=== PATIENT | female | born 2005 | race Caucasian/White ===

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

== ENCOUNTER → 2024-01-01 15:42 | Outpatient (BNVA) | payer OTHER, MEDICAID, SELFPAY | PROVIDERS: PCP Family Medicine; Visit Provider Clinical Nurse Specialist Adult Health | DX: J02.9 Acute pharyngitis, unspecified (principal) | CPT/HCPCS: 87071; 87880 ==

== ENCOUNTER 2024-02-28 17:28 | Emergency (ER) | payer OTHER, MEDICAID, SELFPAY ==
[2024-02-28 17:34] VITALS: BP 143/87; PULSE 93; RESP 18; TEMP 37.2; O2SAT 98
--- NOTE | 2024-02-28 20:23 | W.ED.FEMALGU ---
HPI - Female Genitourinary General: Chief complaint: Urogenital-Female Stated complaint: vaginal pain Time Seen by Provider: 02/28/24 20:06 History of Present Illness: Patient presents to the ER with complaints of low pelvic pain and urinating a lot and feeling like something is falling out of my vagina and needing to push. Patient has normal menses with her last 1 being approximately 2 weeks ago. Patient says she has had this feeling before after she delivered her last child and was delivering blood clots. Patient has not noticed any unusual discharge or odor. Patient has had low pelvic pain with the right being a little bit worse than the left. Patient does have a history of cysts in the past. Patient says this is different than those. Date of Last Menstrual Period: 02/14/24 Review of Systems General: Reports: 10 or more systems reviewed and unremarkable except in HPI and below PFSH ED PFSH: Medical History hemorrhage History of anal fissures Allergic rhinitis Thalassemia Mesenteric adenitis Chronic constipation Ovarian cyst Surgical History Hx laparoscopic cholecystectomy 04/26/23 History of tonsillectomy Family History Mother Thalassemia Patient is of [place] descent Other Cancer Diabetes Denies family history of Hypertension Social History Smoking and tobacco/nicotine status: former use of tobacco/nicotine Second hand smoke exposure: Yes Alcohol intake: never Substance/Drug Use: never Adopted: No Household members: family and friend(s) Marital status: Single Highest education level completed: High School Graduate Pets and animals: No Do you think of yourself as: Straight/Heterosexual Current gender identity: Female Special denita needs: No Agree to transfusion: Yes Female Reproductive History: Date of last menstrual period: 02/14/24 Physical Exam Const: COMMON NORMALS: no acute distress, average body habitus, patient oriented x3, no limitations, healthy appearing, alert and well nourished Neck/C-Spine: COMMON NORMALS: no JVD Chest: COMMONS NORMALS: normal inspection of the chest and normal palpation of entire chest wall Resp: COMMON NORMALS: normal respiratory effort, No retractions, No use of accessory muscles and clear to auscultation bilaterally AUSCULTATION: clear to auscultation bilaterally Cardio: COMMON NORMALS: no JVD, regular rate, regular rhythm, S1 normal heart sound present, S2 normal heart sound present, No gallops present (Cardio), No clicks present (Cardio), No murmurs present (Cardio) and No rub (Cardio) RATE: regular rate RHYTHM: regular rhythm HEART SOUNDS: S1 normal heart sound present and S2 normal heart sound present GI: COMMON NORMALS: Normal to inspection, nondistended, normoactive bowel sounds present, Soft to palpation and No hepatosplenomegaly present; negative for non-tender (Tender to palpate low pelvic region right quadrant mildly worse than left) PALPATION: Yes Soft to palpation and Yes No hepatosplenomegaly present : COMMON NORMALS: Yes no CVA tenderness, Yes normal external appearance, Yes normal appearance of the vagina, Yes normal bimanual exam, No No adnexal tenderness (Mild adnexal tenderness) and Yes no masses BLADDER/KIDNEY EXAM: Yes no CVA tenderness BIMANUAL EXAM - VAGINA & UTERUS: Yes normal bimanual exam BIMANUAL EXAM - ADNEXA, OTHER: No rectocele and No cystocele Back/Pelvis: COMMON NORMALS: no CVA tenderness Neuro: COMMON NORMALS: patient oriented x3 SENSORIUM/ORIENTATION: Yes alert Course Vital Signs: Vital signs: Vital Signs Temperature 98.9 F 02/28/24 17:34 Pulse Rate 82 02/28/24 23:19 Respiratory Rate 16 02/28/24 20:24 Blood Pressure 111/54 02/28/24 21:40 Pulse Oximetry 98 02/28/24 23:19 Oxygen Delivery Me thod Room Air 02/28/24 20:24 MDM - Female Medical Decision Making Physical exam was performed, lab work was obtained as well as transvaginal ultrasound, only abnormal thing showed left ovarian cyst 2.5 cm. These results was discussed with the patient will be referred back to her RESTRICTIVE PREPARATION OPERATOR for further evaluation testing. We will send in some ibuprofen 800 mg to the pharmacy for her pain. Differential Diagnosis Unlikely abdominal pain, acute appendicitis, calculus of kidney, constipation, diverticulitis, endometriosis, gastroenteritis, pancreatitis or small bowel obstruction Medical Records I reviewed the patient's medical records. Lab Data I reviewed the patient's lab results. Radiology Impressions Transvaginal US 02/28/24 20:55 IMPRESSION: 1. Cervical nabothian cysts. 2. Endometrial stripe prominent at 12 mm likely related to menstrual status. 3. Small amount of nonspecific fluid in the pelvis. 4. Left ovary 2.5 cm cyst, likely follicular with color blood flow in the left ovary. Laboratory Results HCG, Qual Negative (Negative) 02/28/24 17:31 Urine Color Light yellow (Yellow) 02/28/24 17:31 Urine Appearance Clear (CLEAR) 02/28/24 17:31 Urine pH 7 (5-7) 02/28/24 17:31 Ur Specific Pearcy 1.005 (1.005-1.030) 02/28/24 17:31 Urine Protein Neg (Negative) 02/28/24 17:31 Urine Glucose (UA) Norm (Normal) 02/28/24 17:31 Urine Ketones Negative (Negative) 02/28/24 17:31 Urine Blood Neg (Negative) 02/28/24 17:31 Urine Nitrate Negative (Negative) 02/28/24 17:31 Urine Bilirubin Neg (Negative) 02/28/24 17:31 Urine Urobilinogen Neg mg/dL (Negative) 02/28/24 17:31 Ur Leukocyte Esterase Negative (Negative) 02/28/24 17:31 Urine RBC 0-4 /hpf (0-2) H 02/28/24 17:31 Urine WBC 0-4 /hpf (0-5) H 02/28/24 17:31 Ur Squamous Epith Cells 5-10 /hpf (0-5) H 02/28/24 17:31 Amorphous Sediment Trace /hpf 02/28/24 17:31 Urine Bacteria Trace /hpf (NONE) 02/28/24 17:31 Urine Mucus Trace /hpf 02/28/24 17:31 All radiology interpretation(s) finalized by discharge Discharge Plan Discharge Patient Disposition: Home Clinical Impression: Pelvic pain, Cyst of left ovary Condition: Stable Prescriptions: New ibuprofen 800 mg tablet 800 mg PO Q8H PRN (Reason: pain) Qty: 30 0RF No Action mirtazapine 7.5 mg tablet 7.5 mg PO DAILY Qty: 30 3RF hydroxyzine HCl 10 mg tablet 10 mg PO QID PRN (Reason: anxiety) Qty: 30 1RF ondansetron 4 mg tablet,disintegrating 4 mg PO Q8H PRN (Reason: nausea and vomiting) Qty: 30 0RF diclofenac potassium 50 mg tablet 50 mg PO BID PRN (Reason: pain) Qty: 30 2RF fluticasone propionate [Flonase Allergy Relief] 50 mcg/actuation spray,suspension 1 spray intranasal BID PRN (Reason: nasal congestion) Qty: 16 0RF Rx Instructions: administer into each nostril Discharge Orders: Discharge ED (Routine); Ordered 02/28/24 Ordered By: Mark Mackey Referrals: Dg Perla MD [Primary Care Provider] - 1 week Patient Instructions: Ovarian Cyst (ED), Pelvic Pain in Women (ED) Activity Restrictions/Additional Instructions: Please follow-up with your RESTRICTIVE PREPARATION OPERATOR for further evaluation testing. We have sent some ibuprofen 800 mg to your pharmacy please take them as directed as needed for pain. Stand Alone Forms: Work/School Release Coding Level of Care Code ED Chief Dog License Inspector for Anmol Estevez
[2024-02-28 20:24] VITALS: BP 126/75; PULSE 97; RESP 16; O2SAT 100
[2024-02-28 20:33] LABS: HCG Qualitative Urine. Negative (Negative)
[2024-02-28 20:36] LABS: Amorphous Sediment Urine TRACE /hpf; Bacteria Urine TRACE /hpf; Bilirubin Urine Neg (Negative); Blood Urine Neg (Negative); Glucose Urine UA Norm (Normal); Ketones Urine Negative (Negative); Leukocyte Esterase Urine Negative (Negative); Mucus Urine TRACE /hpf; Nitrate Urine Negative (Negative); Protein Urine Neg (Negative); RBC Urine 0-4 /hpf (0-2); Specific Gravity, Urine 1.005 (1.005-1.030); Urine Appearance Clear (CLEAR); Urine Color Light yellow (Yellow); Urobilinogen Urine Neg (Negative); WBC Urine 0-4 /hpf (0-5); pH Urine 7 (5-7)
--- NOTE | 2024-02-28 20:55 | USR_ITS ---
PROCEDURE INFORMATION: Exam: US Pelvis, Transvaginal Exam date and time: 02/28/2024 10:10 PM Age: 18 years old Clinical indication: Pelvic pain; Additional info: Low pelvic pain, , also feels like something is falling out of my vagina TECHNIQUE: Imaging protocol: Real-time transvaginal pelvic ultrasound with image documentation. Transvaginal imaging was used for better evaluation of the endometrium, adnexa, and/or cervix. COMPARISON: US transvaginal [id number] 11/06/2023 1:35 PM FINDINGS: Uterus: Endometrial stripe prominent at 12 mm likely related to menstrual status. Cervix: Cervical nabothian cysts. Right ovary/adnexa: Normal. No mass. Normal ovarian blood flow. Left ovary/adnexa: Left ovary 2.5 cm cyst, likely follicular with color blood flow in the left ovary. Intraperitoneal space: Small amount of nonspecific fluid in the pelvis. US/US transvaginal [id number] IMPRESSION: 1. Cervical nabothian cysts. 2. Endometrial stripe prominent at 12 mm likely related to menstrual status. 3. Small amount of nonspecific fluid in the pelvis. 4. Left ovary 2.5 cm cyst, likely follicular with color blood flow in the left ovary.
[2024-02-28 21:40] VITALS: BP 111/54; PULSE 86; O2SAT 99
[2024-02-28 23:19] VITALS: PULSE 82; O2SAT 98
== END 2024-02-28 23:20 | disposition home or self-care (01) ==
PROVIDERS: Emergency Medicine; Emergency Provider Emergency Medicine; PCP Family Medicine
DX: R10.2 Pelvic and perineal pain (principal); N83.202 Unspecified ovarian cyst, left side; Z87.891 Personal history of nicotine dependence
CPT/HCPCS: 76830; 81001; 81025; 99284

== ENCOUNTER 2024-03-01 11:48 | Emergency (ER) | payer OTHER, MEDICAID, SELFPAY ==
[2024-03-01 12:07] VITALS: BP 118/71; PULSE 89; RESP 16; TEMP 36.8; O2SAT 100; BMI 35.4
[2024-03-01 13:28] LABS: HCG, Serum Qual Negative (Negative)
[2024-03-01 13:44] VITALS: BP 126/85; PULSE 88; RESP 16; O2SAT 100
--- NOTE | 2024-03-01 14:11 | W.ED.FEMALGU ---
HPI - Female Genitourinary General: Chief complaint: Vaginal Bleeding Stated complaint: issues with vagina Time Seen by Provider: 03/01/24 12:28 Source: patient Mode of arrival: ambulatory History of Present Illness: 18-year-old female presents emergency room she is having mild vaginal bleeding that she states she feels like something is falling on her vaginal vagina. She was seen 2 days ago pelvic exam was recorded is unremarkable. She was no at that time ultrasound did not show any significant abnormalities that she is still having trouble now especially when she tries to go to the bathroom. No purulent vaginal discharge is difficult time initiating urination but no dysuria urgency or frequency. Onset (ago): day(s) Location of symptoms: external genitalia and vaginal Severity: moderate Quality of pain: aching Consistency: intermittent Vaginal discharge: none Vaginal bleeding: moderate Urinary symptoms: Difficulty Urinating Exacerbating factors: urination Relieving factors: none Associated symptoms: Deny abdominal pain, short of breath, fevers/chills, headache(s), nausea, rash, seizures, syncope, vaginal bleeding, vaginal discharge or weakness Possible : other (Negative test in the ER 2 days ago) Date of Last Menstrual Period: 02/17/24 Review of Systems Const: Denies: fever(s) or chills Card: Denies: syncope Resp: Denies: dyspnea GI: Denies: abdominal pain or nausea : Reports: urinary hesitancy; Denies: vaginal discharge Musc: Denies: neck pain or back pain Skin/Breast: Denies: rash Neuro: Denies: headache(s) [facility] ED PFSH: Medical History hemorrhage History of anal fissures Allergic rhinitis Thalassemia Mesenteric adenitis Chronic constipation Ovarian cyst Surgical History Hx laparoscopic cholecystectomy 04/26/23 History of tonsillectomy Family History Mother Thalassemia Patient is of [place] descent Other Cancer Diabetes Denies family history of Hypertension Social History Smoking and tobacco/nicotine status: former use of tobacco/nicotine Second hand smoke exposure: Yes Alcohol intake: never Substance/Drug Use: never Adopted: No Household members: family and friend(s) Marital status: Single Highest education level completed: High School Graduate Pets and animals: No Do you think of yourself as: Straight/Heterosexual Current gender identity: Female Special denita needs: No Agree to transfusion: Yes Female Reproductive History: Date of last menstrual period: 02/17/24 Physical Exam Const: COMMON NORMALS: no acute distress GENERAL APPEARANCE: cooperative and comfortable ORIENTATION/CONSCIOUSNESS: Yes awake, Yes oriented to person, Yes oriented to place and Yes oriented to time HENMT: COMMON NORMALS: normocephalic, atraumatic and hearing grossly normal bilaterally HEAD & SCALP: normocephalic and atraumatic Resp: COMMON NORMALS: normal respiratory effort, No retractions, No use of accessory muscles and clear to auscultation bilaterally AUSCULTATION: clear to auscultation bilaterally Cardio: COMMON NORMALS: regular rate, regular rhythm and No murmurs present (Cardio) RATE: regular rate RHYTHM: regular rhythm GI: COMMON NORMALS: Soft to palpation and No hepatosplenomegaly present AUSCULTATION: Yes normoactive bowel sounds PALPATION: Yes Soft to palpation, No Tenderness to palpation present (GI), No Guarding due to palpation present (GI) and Yes No hepatosplenomegaly present : SPECULUM EXAM - VAGINA: No vaginal bleeding OB/EXTERNAL & SPECULUM: No vaginal bleeding OTHER: On pelvic exam anterior lip of the uterus is visible at the introitus. There is a mild cystocele with Valsalva maneuver as well. There is a scant amount of blood at the cervix no purulent drainage no cervical motion tenderness Extremity: COMMON NORMALS: normal to inspection, capillary refill normal, no clubbing, cyanosis or edema, no calf tenderness and no pedal edema Neuro: SENSORIUM/ORIENTATION: Yes oriented to person, Yes oriented to place and Yes oriented to time Skin: COMMON NORMALS: no rashes or lesions noted GENERAL SKIN EXAM: no rashes or lesions noted Course Vital Signs: Vital signs: Vital Signs Temperature 98.3 F 03/01/24 12:07 Pulse Rate 88 03/01/24 13:44 Respiratory Rate 16 03/01/24 13:44 Blood Pressure 126/85 03/01/24 13:44 Pulse Oximetry 100 03/01/24 13:44 Oxygen Delivery Me thod Room Air 03/01/24 12:07 MDM - Female Medical Decision Making Partial uterine prolapse with cystocele. Will discharge patient home have her follow-up with her primary care doctor for referral to [facility] negative GC chlamydia are pending Medical Records I reviewed the patient's medical records. Lab Data I reviewed the patient's lab results. Laboratory Results HCG, Qual Negative (Negative) 03/01/24 13:10 No radiology studies performed this visit Discharge Plan Discharge Patient Disposition: Home Clinical Impression: Cystocele with uterine prolapse Condition: Stable Prescriptions: No Action mirtazapine 7.5 mg tablet 7.5 mg PO DAILY Qty: 30 3RF hydroxyzine HCl 10 mg tablet 10 mg PO QID PRN (Reason: anxiety) Qty: 30 1RF ondansetron 4 mg tablet,disintegrating 4 mg PO Q8H PRN (Reason: nausea and vomiting) Qty: 30 0RF diclofenac potassium 50 mg tablet 50 mg PO BID PRN (Reason: pain) Qty: 30 2RF fluticasone propionate [Flonase Allergy Relief] 50 mcg/actuation spray,suspension 1 spray intranasal BID PRN (Reason: nasal congestion) Qty: 16 0RF Rx Instructions: administer into each nostril ibuprofen 800 mg tablet 800 mg PO Q8H PRN (Reason: pain) Qty: 30 0RF Discharge Orders: Discharge ED (Routine); Ordered 03/01/24 Ordered By: Jose De La O Referrals: Dg Perla MD [Primary Care Provider] - Discharge Diet: Usual diet Discharge Activity: Increase activity as tolerated Patient Instructions: Opioid Safety, Pain Management Stand Alone Forms: Work/School Release Coding Level of Care Code ED Spray Machine Operator for Anmol Estevez
[2024-03-02 22:53] LABS: Chlamydia Trachomatis RNA TMA NOT DETECTED (NOT DETECTED); Neisseria Gonorrhoeae RNA, TMA NOT DETECTED (NOT DETECTED)
== END 2024-03-01 13:43 | disposition home or self-care (01) ==
PROVIDERS: Emergency Provider Family Medicine; PCP Family Medicine
DX: N81.4 Uterovaginal prolapse, unspecified (principal); Z87.891 Personal history of nicotine dependence
CPT/HCPCS: 36415; 84703; 87210; 87491; 87591; 99283

== ENCOUNTER 2024-03-24 16:46 | Observation (INO) | payer OTHER, MEDICAID, SELFPAY ==
[2024-03-23 13:23] LABS: Basophils # 0.1 10^3/uL (0.0-0.1); Basophils % 1.1 %; Eosinophils # 0.1 10^3/uL (0.0-0.8); Eosinophils % 1.6 %; Hematocrit 37.8 % (36-47); Lymphocytes % 35.3 %; Mean Corpuscular HGB Conc 29.9 g/dL (30-55); Mean Corpuscular Hemoglobin 19.2 pg (27-33); Mean Corpuscular Volume 64.2 fl (85-98); Mean Platelet Volume 10.7 fL (7.4-10.4); Monocytes # 0.4 10^3/uL (0.2-0.9); Monocytes % 7.1 %; Neutrophils # 3.03 10^3/uL (1.8-8.0); Neutrophils % 54.7 %; Nucleated Red Blood Cells % 0 %; Platelet Count 307 10^3/cmm (157-399); Red Blood Count 5.89 10^6/uL (3.85-5.65); Red Cell Distribution Width 15.1 % (12.1-15.1); White Blood Count 5.53 10^3/uL (4.5-13.0)
--- NOTE | 2024-03-23 13:32 | P.ANESASSM_ITS ---
Pre-Anesthetic Assessment Height/Weight: Height 1.75 m Operation Date: 03/24/24 14:50 Proposed Procedures p Total Vaginal Hysterectomy 53547, 99782, N81.4(Not Applicable) - Honorio Ramirez MD s Sling(Not Applicable) - Honorio Ramirez MD Familial anesthetic complications: none Social Tobacco (vape) and No alcohol Exam alert, oriented x 3, clear to auscultation bilaterally and regular rate & rhythm Airway Mallampati: Class II Dentition: full CV/HEM Anemia beta thalasemia Anesthetic Plan ASA status: 2 Anesthesia: General Risk of > 500 ml blood loss (7ml/kg in children): No Medications/Allergies Home Medications Medication Instructions Recorded Confirmed Last Taken Type ondansetron 4 mg disintegrating 4 mg PO Q8H PRN nausea and 11/13/23 03/23/24 03/21/24 Rx tablet vomiting #30 tabs fluticasone propionate 50 1 spray intranasal BID PRN nasal 01/22/24 03/23/24 03/20/24 Rx mcg/actuation nasal congestion #16 grams spray,suspension (Flonase Allergy Relief) tramadol 50 mg tablet 25 mg (1/2 x 50 mg) PO BID PRN 03/13/24 03/23/24 Unknown Rx pain #5 tabs hydroxyzine HCl 25 mg tablet 25 mg PO QID PRN anxiety #30 tabs 03/20/24 03/23/24 03/20/24 Rx acetaminophen 500 mg tablet 1,000 mg PO QID PRN Pain 03/23/24 03/23/24 03/20/24 History ibuprofen 800 mg tablet 800 mg PO TID PRN Pain 03/23/24 03/23/24 03/19/24 History Allergies Allergy/AdvReac Type Severity Reaction Status Date / Time ampicillin Allergy ALGY-Difficulty Verified 03/23/24 08:23 Swallowing PFSH Anesthesia Medical History hemorrhage History of anal fissures Allergic rhinitis Thalassemia Mesenteric adenitis Chronic constipation Ovarian cyst Surgical History Hx laparoscopic cholecystectomy 04/26/23 History of tonsillectomy Family History Mother Thalassemia Patient is of [place] descent Other Cancer Diabetes Denies family history of Hypertension Social History Smoking and tobacco/nicotine status: former use of tobacco/nicotine Second hand smoke exposure: Yes Alcohol intake: never Substance/Drug Use: never Adopted: No Household members: family and friend(s) Marital status: Single Highest education level completed: High School Graduate Pets and animals: No Do you think of yourself as: Straight/Heterosexual Current gender identity: Female Special denita needs: No Agree to transfusion: Yes Female Reproductive History Date of last menstrual period: 03/12/24 Data Anesthesia 03/23/24 13:05 03/23/24 13:05 Short CBC 03/23/24 Range/Units 13:05 WBC 5.53 (4.5-13.0) 10^3/uL Hgb 11.30 L (12.4-14.8) g/dL Hct 37.8 (36-47) % MCV 64.2 L (85-98) fl Plt Count 307 (157-399) 10^3/cmm Neut % (Auto) 54.7 % Neut # (Auto) 3.03 (1.8-8.0) 10^3/uL Cardiac Studies: 2 No Data to Display
[2024-03-23 13:33] LABS: Add Urine Microscopic? YES; Bilirubin Urine Neg (Negative); Blood Urine Neg (Negative); Glucose Urine UA Norm (Normal); Ketones Urine Negative (Negative); Leukocyte Esterase Urine Negative (Negative); Nitrate Urine Negative (Negative); Protein Urine Neg (Negative); Specific Gravity, Urine 1.015 (1.005-1.030); Urine Appearance SL Hazy (CLEAR); Urine Color Yellow (Yellow); Urobilinogen Urine Norm (Negative); pH Urine 7 (5-7)
[2024-03-23 13:34] LABS: Add Urine Culture? No; Amorphous Sediment Urine 1+ /hpf; Bacteria Urine TRACE /hpf; Mucus Urine 1+ /hpf; RBC Urine 0-4 /hpf (0-2); Squamous Epithelial Cell Urine 0-4 /hpf (0-5); WBC Urine 0-4 /hpf (0-5)
[2024-03-23 13:38] LABS: Alanine Aminotransferase 9 U/L (0-33); Albumin Level 4.5 g/dL (3.5-5.2); Alkaline Phosphatase 48 U/L (35-105); Aspartate Amino Transferase 17 U/L (0-32); Blood Urea Nitrogen 12 mg/dL (6-20); Calcium 9.4 mg/dL (8.5-10.5); Carbon Dioxide 26 mmol/L (22-29); Chloride 102 mmol/L (98-107); Globulin 2.6 g/dL (1.3-4.6); Glomerular Filtration Rate 106.7 mL/min (90-130); Glucose 88 mg/dL (65-115); Osmolality Calculated 287 mOsm/kg (285-295); Sodium 139 mmol/L (136-145); Total Bilirubin 0.3 mg/dL (0.15-1.2); Total Protein 7.1 g/dL (6.6-8.7)
[2024-03-24] VITALS (18 sets, daily range): BP systolic 98–124; BP diastolic 54–73; PULSE 67–86; RESP 14–18; TEMP 36.8–37.1; O2SAT 97–100
--- NOTE | 2024-03-24 14:06 | W.PM.OPSUD ---
Surgery/Procedure H&P Update DATE OF PROCEDURE: March 24, 2024 DATE H&P PERFORMED: 03/06/24 H&P UPDATE INFORMATION: I have reviewed H&P completed within last 30 days, I have examined patient prior to procedure and No changes to prior documentation PREOP DIAGNOSIS: Uterine prolapse, pelvic pain, urinary stress incontinence PLANNED PROCEDURE: Operation Date: 03/24/24 14:50 Proposed Procedures p Total Vaginal Hysterectomy 98084, 99598, N81.4(Not Applicable) - Honorio Raimrez MD s Sling(Not Applicable) - Honorio Ramirez MD
[2024-03-24] MEDS: sodium chloride 0.9% 500 ML IV (14:19)
[2024-03-24] MEDS: midazolam 1 mg/mL INJ 2 mL 2 MG IVP (14:19)
[2024-03-24] MEDS: scopolamine 1.5 Patch 1 PATCH TRANSDERMA (14:21)
[2024-03-24] MEDS: vancomycin 1,000 MG in sodium chloride 0.9% 250 ML 250 MG IV (14:23)
[2024-03-24] MEDS: sodium chloride 0.9% 1,000 ML 30 ML IV (14:27)
[2024-03-24 14:33] LABS: OR HCG Qualitative Urine Negative (Negative)
[2024-03-24] MEDS: levofloxacin-dextrose 5 % 500 MG/100 ML PREMIX 100 MG IV (15:10)
[2024-03-24] MEDS: lidocaine-epi 2% PF 1:200,000 20 mL SDV XX (15:43)
--- NOTE | 2024-03-24 16:29 | P.BOP_ITS ---
Date of Procedure: 03/24/24 Surgeon: Honorio Ramirez MD Substation Manager(s): None Procedure(s) performed: Total vaginal hysterectomy, mid urethral sling Findings of the procedure(s): Uterine prolapse stage II Estimated blood loss: 350 Specimen(s) removed: Uterus Post-operative diagnosis: Status post total vaginal hysterectomy and mid urethral sling
--- NOTE | 2024-03-24 16:31 | P.OP_ITS ---
Operative Report Date of procedure: March 24, 2024 Pre-op diagnosis: Uterine prolapse Chronic Pelvic pain Stress urinary incontinence Post-op diagnosis: same Post-op findings: Urine prolapse stage II Procedure done: Total vaginal hysterectomy Mid urethral sling Cystoscopy Specimens removed/disposition: The uterus Surgeon: Honorio Ramirez MD Estimated blood loss (mL): 350 IV fluids (mL): 1,000 Urine output (mL): 200 Complications: None Procedure: After informed consent and risks, benefits, indications and alternatives reviewed with the patient was taken to the operating room. The patient was placed in dorsal lithotomy position prepped, and draped in the usual sterile fashion. The pre-procedure timeout verifying the correct patient, procedure, site and side, could not requirements was performed and acknowledge by the OR team. A Charles catheter was placed. A Bookwalter vaginal retractor was placed into the vagina in usual manner visualize the cervix. Cervix was grasped with a single tooth tenaculum and circumferentially infiltrated with 2% lidocaine with epinephrine. Then cervix was circumferentially incised with bovie and the bladder was dissected off the pubovesical cervical fascia anteriorly with a sponge stick and Metzenbaum scissors. The anterior peritoneal reflection was identified and the anterior cul-de-sac was entered sharply with Metzenbaum scissors. The same procedure was performed posteriorly and a posterior colpotomy was made through the posterior cul-de-sac space without difficulty and the posterior blade of the Bookwalter vaginal retractor was advanced posteriorly into the cul-de-sac. At this time, the left and right uterosacral ligaments were isolated and ligated with 0 Vicryl. The LigaSure device was placed over the uterosacral ligaments on either side and was then used in a serial fashion up through the cardinal ligaments bilaterally cross-clamped, cut, and sealed with the LigaSure device. Finally, the uterine arteries were cross-clamped, cut, sealed and ligated with the LigaSure device. Hemostasis was assured. The broad ligaments were then serially clamped, sealed and cut with the LigaSure device on both sides. Excellent hemostasis was visualized. Both cornua were clamped, sealed and cut with the LigaSure device. Then the pedicles were then suture ligated with excellent hemostasis. The uterus was excised and submitted for pathologic evaluation. No other abnormalities were noted in the pelvic cavity. The peritoneum was then closed in a pursestring fashion with 0 Vicryl suture. The vaginal cuff angles were closed with [id number] #0 Vicryl suture on both sides and transfixed with the ipsilateral cardinal and uterosacral ligaments. The remainder of the vaginal cuff was closed with #0 Vicryl in a running locked fashion. The anterior vaginal mucosa beneath the midurethra was infiltrated with 2% lidocaine with epinephrine. A vertical midline incision was made beneath the midurethra, nearly 1.5 cm length. Careful submucosal dissection was performed bilaterally up to the interior portion of the inferior pubic ramus. The insertion of adductor longus tendon on the patient?s pubic ramus was identified as reference land dominik. Palpated the notch along the internal edge of ischiopubic ramus where the adductor longus tendon and the inferior pubic ramus meet. The Altis single incision sling (SIS) was selected. Then the needle of the SIS inserted aiming at the location of this notch. One of the integrated self- fixating tips place onto the needle by sliding it over the end of the needle. The needle/sling assembly was inserted toward the location of identified reference notch making sure that the flat of the handle is perpendicular to the desired path. The needle was tracked along the posterior surface of the ischiopubic ramus until the midline dominik on the mesh is approximately at the midline position under the urethra. The needle was removed and the same was repeated on the contralateral side until the appropriate sling tension under the urethra was achieved ensuring that the mesh lays flat. The needle was removed and vaginal incision was closed in a running interlocking fashion with 2-0 Vicryl. At this time, instruments were removed from the vagina at hemostasis assured. Bludigo was given IV. Then the Charles catheter was removed and cystoscope was inserted. The bladder was filled with sterile water. Complete evaluation of the bladder mucosa was performed noting no lacerations, dimpling, tears, bleeding of the mucosa or muscular layers. Both ureteral orifices were identified. Prompt excretion of urine from both ureteral orifices was noted blue-color. Cystoscope was withdrawn. Charles catheter was then placed yielding clear blue urine. The patient was taken out of dorsal lithotomy position and awakened from the general anesthesia. The patient tolerated the procedure well and was taken to the PACU recovery room in a stable condition. Sponge, lap, needle and instruments counts were correct x3.
[2024-03-24] MEDS: meperidine 50 mg/mL INJ 12.5 MG IVP (16:40)
[2024-03-24] MEDS: ondansetron 2 mg/ML SDV 2 mL 4 MG IVP (16:42)
[2024-03-24] MEDS: fentaNYL 50 mcg/mL INJ 2mL IVP (16:53)
--- NOTE | 2024-03-24 17:10 | ANE.PACU2 ---
Inpatient post-anesthesia follow up: Airway intact: Yes Vital signs: Temperature 98.1 F Pulse Rate 79 Respiratory Rate 16 Blood Pressure 112/79 Pulse Oximetry 95 Oxygen Delivery Me thod Room Air Oxygen Flow Rate 6 Fraction of Inspir ed Oxygen Hydration adequate: Yes Nausea and vomiting: No Pain level: 1 Mental status: Baseline
[2024-03-24] MEDS: docusate sodium 100 mg Capsule PO (17:45)
[2024-03-24] MEDS: ketorolac 30 mg/mL INJ IVP ×2 (17:45→23:38)
[2024-03-24] MEDS: HYDROcodone-acetaminophen 5-325 mg Tablet PO (17:46)
[2024-03-24] MEDS: simethicone 80 mg Chew PO (17:46)
[2024-03-24] MEDS: dextrose 5%-lactated ringers 1,000 ML 125 ML IV (17:49)
[2024-03-25 00:34] VITALS: BP 92/55; PULSE 89; RESP 16; O2SAT 97
[2024-03-25] MEDS: HYDROcodone-acetaminophen 5-325 mg Tablet PO ×2 (01:31→12:28)
[2024-03-25] MEDS: simethicone 80 mg Chew PO ×2 (03:13→09:12)
[2024-03-25] MEDS: ondansetron 2 mg/ML SDV 2 mL 4 MG IVP (03:14)
[2024-03-25 04:00] VITALS: BP 112/79; PULSE 79; RESP 16; TEMP 36.7; O2SAT 97
[2024-03-25 04:13] VITALS: RESP 16; O2SAT 95
[2024-03-25 05:41] LABS: Hematocrit 34.1 % (36-47); Mean Corpuscular HGB Conc 30.2 g/dL (30-55); Mean Corpuscular Hemoglobin 19.3 pg (27-33); Mean Corpuscular Volume 63.7 fl (85-98); Mean Platelet Volume 10.2 fL (7.4-10.4); Platelet Count 318 10^3/cmm (157-399); Red Blood Count 5.35 10^6/uL (3.85-5.65); Red Cell Distribution Width 15.1 % (12.1-15.1); White Blood Count 7.45 10^3/uL (4.5-13.0)
[2024-03-25] MEDS: ketorolac 30 mg/mL INJ IVP (05:44)
--- NOTE | 2024-03-25 08:35 | P.DS_ITS ---
Discharge Providers CURRICULUM DEVELOPMENT SPECIALIST Date of Admission: 03/24/24 16:46 Date of Discharge: 03/25/24 Attending Provider at Admission: Honorio Ramirez MD Attending Provider at Discharge: Honorio Ramirez MD Primary CURRICULUM DEVELOPMENT SPECIALIST: Honorio Ramirez MD Primary Care Provider: Dg Perla MD Reason for Visit Reason for Visit: N81.4 Hospital Course Hospital Course Mrs. Pulido 19-year-old female G1, P1 with a history of chronic pelvic pain, stress urinary incontinence and uterine prolapse stage I with cystocele. She wa s admitted for planned total vaginal hysterectomy and single incision mid urethral sling. The procedures were performed without complication. Overnight observation uneventful. She is afebrile hemodynamically stable postoperative day 1. Tolerating diet well. Ambulating without difficulty. She was counseled regarding pelvic rest for 6 weeks (no sex, no tampons, no vaginal douches). Return to the emergency room if any fever, increased bleeding or pain. Physical Exam Narrative: GA: Alert and oriented ?3. HEENT: WNL. Heart: Regular rate and rhythm. Lungs: Clear to auscultation bilaterally. Abdomen: Bowel sounds present, nontender, minimal tenderness, incision clean and dry, no redness, pain or edema. TRIMMING DEPARTMENT BLOCKER: No bleeding. Extremities: No edema, no cyanosis, no calves pain. Urinary Catheter Management: Charles: Cath Placed During This Visit: yes, but has since been removed by the nurse Reason for Continuing Indwelling Catheter: Decision to DC Catheter Date Urinary Catheter Removed: 03/25/24 Time Urinary Catheter Discontinued: 05:33 History History History 1 Term 1 0 Miscarriages/Ectopic 0 Living Children 1 Past Pregnancies Del. Date GA/Weeks Outcome Route Wt Inf Gender Labor Lgth Comp. Anesth esia Location 04/01/23 40 live - full term Vaginal 3.827 kg Male 24 hr regional [facility] [place] Delivery Date: 04/01/23 Last Updated by: Dg Perla MD Beta thalassemia, anemia, rubella nonimmune, Rh- Discharge Data Studies Completed and Pending Pending at discharge Category Date Time Status Pathology: Surgical [PTH] Routine Pth 03/24/24 15:39 Received Laboratory Results WBC 7.45 10^3/uL (4.5-13.0) 03/25/24 05:34 RBC 5.35 10^6/uL (3.85-5.65) 03/25/24 05:34 Hgb 10.30 g/dL (12.4-14.8) L 03/25/24 05:34 Hct 34.1 % (36-47) L 03/25/24 05:34 MCV 63.7 fl (85-98) L 03/25/24 05:34 MCH 19.3 pg (27-33) L 03/25/24 05:34 MCHC 30.2 g/dL (30-55) 03/25/24 05:34 RDW 15.1 % (12.1-15.1) 03/25/24 05:34 Plt Count 318 10^3/cmm (157-399) 03/25/24 05:34 MPV 10.2 fL (7.4-10.4) 03/25/24 05:34 Neut % (Auto) 54.7 % 03/23/24 13:05 Lymph % (Auto) 35.3 % 03/23/24 13:05 [place] % (Auto) 7.1 % 03/23/24 13:05 Eos % (Auto) 1.6 % 03/23/24 13:05 Baso % (Auto) 1.1 % 03/23/24 13:05 Neut # (Auto) 3.03 10^3/uL (1.8-8.0) 03/23/24 13:05 Lymph # (Auto) 2.0 10^3/uL (1.5-6.5) 03/23/24 13:05 [place] # (Auto) 0.4 10^3/uL (0.2-0.9) 03/23/24 13:05 Eos # (Auto) 0.1 10^3/uL (0.0-0.8) 03/23/24 13:05 Baso # (Auto) 0.1 10^3/uL (0.0-0.1) 03/23/24 13:05 Nucleated RBC % (auto) 0 % 03/23/24 13:05 Nucleated RBCs # 0.0 /100WBC 03/23/24 13:05 Sodium 139 mmol/L (136-145) 03/23/24 13:05 Potassium 4.0 mmol/L (3.5-5.1) 03/23/24 13:05 Chloride 102 mmol/L (98-107) 03/23/24 13:05 Carbon Dioxide 26 mmol/L (22-29) 03/23/24 13:05 Anion Gap 15.0 (5-19) 03/23/24 13:05 BUN 12 mg/dL (6-20) 03/23/24 13:05 Creatinine 0.7 mg/dL (0.5-0.9) 03/23/24 13:05 GFR Calculation 106.7 mL/min (90-130) 03/23/24 13:05 Glucose 88 mg/dL (65-115) 03/23/24 13:05 Calculated Osmolality 287 mOsm/kg (285-295) 03/23/24 13:05 Calcium 9.4 mg/dL (8.5-10.5) 03/23/24 13:05 Total Bilirubin 0.3 mg/dL (0.15-1.2) 03/23/24 13:05 AST 17 U/L (0-32) 03/23/24 13:05 ALT 9 U/L (0-33) 03/23/24 13:05 Alkaline Phosphatase 48 U/L (35-105) 03/23/24 13:05 Total Protein 7.1 g/dL (6.6-8.7) 03/23/24 13:05 Albumin 4.5 g/dL (3.5-5.2) 03/23/24 13:05 Globulin 2.6 g/dL (1.3-4.6) 03/23/24 13:05 Urine Color Yellow (Yellow) 03/23/24 13:00 Urine Appearance Sl hazy (CLEAR) A 03/23/24 13:00 Urine pH 7 (5-7) 03/23/24 13:00 Ur Specific [place] 1.015 (1.005-1.030) 03/23/24 13:00 Urine Protein Neg (Negative) 03/23/24 13:00 Urine Glucose (UA) Norm (Normal) 03/23/24 13:00 Urine Ketones Negative (Negative) 03/23/24 13:00 Urine Blood Neg (Negative) 03/23/24 13:00 Urine Nitrate Negative (Negative) 03/23/24 13:00 Urine Bilirubin Neg (Negative) 03/23/24 13:00 Urine Urobilinogen Norm mg/dL (Negative) 03/23/24 13:00 Ur Leukocyte Esterase Negative (Negative) 03/23/24 13:00 Urine RBC 0-4 /hpf (0-2) H 03/23/24 13:00 Urine WBC 0-4 /hpf (0-5) H 03/23/24 13:00 Ur Squamous Epith Cells 0-4 /hpf (0-5) H 03/23/24 13:00 Amorphous Sediment 1+ /hpf 03/23/24 13:00 Urine Bacteria Trace /hpf (NONE) 03/23/24 13:00 Urine Mucus 1+ /hpf 03/23/24 13:00 Urine HCG, Qual Negative (Negative) 03/24/24 13:19 Blood Type O Negative 03/24/24 14:00 Rho(D) Type Rh negative 03/24/24 14:00 Antibody Screen Negative 03/24/24 14:00 Vitals Last Vital Signs Temp 98.1 F 03/25/24 04:00 Pulse 79 03/25/24 04:00 Resp 16 03/25/24 04:13 BP 112/79 03/25/24 04:00 Pulse Ox 95 03/25/24 04:13 O2 Del Method Room Air 03/25/24 04:00 O2 Flow Rate 6 03/24/24 16:32 Results Labs OB ([facility]): Obstetrics US 03/12/23 Blood Type O Negative 03/24/24 Antibody Screen Negative 03/24/24 Hct 34.1 % (36-47) L 03/25/24 Hgb 10.30 g/dL (12.4-14.8) L 03/25/24 Rho(D) Type Rh negative 03/24/24 Plt Count 318 10^3/cmm (157-399) 03/25/24 Hep Bs Antigen Non-reactive (Nonreactive) 08/09/22 Hepatitis C Antibody Non-reactive (Nonreactive) 08/09/22 Rubella IgG Antibody 6.3 IU/mL (0.0-10.0) 08/09/22 RPR Nonreactive (Nonreactive) 08/09/22 HIV 1&2 Ab & HIV 1 Ag Non-reactive (Non-Reactiv) 08/09/22 TSH 2.00 uIU/mL (0.27-4.20) 03/13/23 Free T4 1.08 ng/dL (0.93-1.60) 03/13/23 C.trachomatis RNA (TMA) Not detected (NOT DETECTED) N.gonorrhoeae RNA (TMA) Not detected (NOT DETECTED) T. vaginalis Amp RNA Not detected (NOT DETECTED) 12/26/23 Chlamydia/GC Comment See note 03/01/24 Gest Glucose Tolerance 81 mg/dL 12/25/22 Uric Acid 6.3 mg/dL (2.4-5.7) H 04/23/23 Progesterone 26.82 ng/mL 09/20/22 Ser , Semi-Qnt 663285.00 mIU/mL 09/20/22 HCG, Qual Negative (Negative) 03/01/24 Urine Opiates Screen Negative ng/mL (Negative) 08/09/22 Ur Barbiturates Screen Negative ng/mL (Negative) 08/09/22 Ur Phencyclidine Scrn Negative ng/mL (Negative) 08/09/22 Ur Amphetamines Screen Negative ng/mL (Negative) 08/09/22 U Benzodiazepines Scrn Negative ng/mL (Negative) 08/09/22 Urine Cocaine Screen Negative ng/mL (Negative) 08/09/22 U Marijuana (THC) Screen Negative ng/mL (Negative) 08/09/22 Micro Urine Specimen 08/21/23 Pap Smear Interpret See note A 08/09/22 Discharge Plan Discharge Patient Disposition: Home Condition: Stable Prescriptions: New hydrocodone-acetaminophen 5-325 mg tablet 1 tab PO Q4H PRN (Reason: pain) Qty: 20 0RF acetaminophen 325 mg capsule 325 mg PO Q4H PRN (Reason: fever or pain) Qty: 60 0RF ibuprofen 800 mg tablet 800 mg PO TID PRN (Reason: pain) Qty: 60 0RF Continued fluticasone propionate [Flonase Allergy Relief] 50 mcg/actuation spray,suspension 1 spray intranasal BID PRN (Reason: nasal congestion) Qty: 16 0RF Rx Instructions: administer into each nostril hydroxyzine HCl 25 mg tablet 25 mg PO QID PRN (Reason: anxiety) Qty: 30 2RF acetaminophen 500 mg Tablet 1,000 mg PO QID PRN (Reason: Pain) ibuprofen 800 mg tablet 800 mg PO TID PRN (Reason: Pain) Discharge Orders: Discharge Order (Routine); Ordered 03/25/24 Ordered By: Honorio Ramirez Referrals: Honorio Ramirez MD [Physician] - 04/08/24 1:15 pm (* Your 2 week post op is 04/08/2024 at 1:15pm * Your 6 week follow up appointment is on 05/07/2024 at 1:15pm) Patient Instructions: Bladder Sling for Women (DC), Vaginal Hysterectomy (DC), OB Discharge Report, OB Food/Drug Interaction Guide, Opioid Safety Activity Restrictions/Additional Instructions: 1. Please call [facility] on next working day to make your post-operative appointment in 2 weeks. 2. Please stay home until you come back to the clinic on first post- hospatilization check up. 3. Please follow instructions on your medications CAREFULLY. 4. If you have abdominal incision, do not cover it unless dressing is necessary because of drainage. OK to shower, but avoid bath. Leave steri-strips until they fall off. If they are still on one week after surgery, you may remove them. 5. If you had vaginal surgery or vaginal repair, Dr. Ramirez may instruct you to take SITZ bath. 6. Yellow, blood tinged odorous vaginal discharge is usually normal after hysterectomy or vaginal surgeries. 7. No SEXUAL INTERCOURSE, tampons, or douches until you are completely released from the post-operative care. 8. Avoid constipation by eating right and maybe using some Metamucil or Milk of Magnesia. 9. All prescription refills are given during the working hours. Please do no wait till it runs out. Call the clinic at [phone] before your medication runs out. The clinic will get in touch with your doctor to prescribe medications if necessary. 10. Please remain within 40 mile radius from our hospital because emergencies do happen now and then during the post-operative period. 11. If you have stairs at home, take one step at a time slowly and minimize the number of trips. It helps to stay in one floor for the next few days. No lifting except what you can lift by one hand until you are released from the post-operative care. 12. Driving is discouraged until you are well healed. It may be 3-4 weeks before you feel strong enough to drive. You should be able to turn and look through the rear window without pain and you should be able to push the brake pedal very hard without pain before you drive. No fast rules, but SAFETY should be your primary concern. DO NOT drive if you are on sedating medications such as narcotics. 13. Call the clinic (during working hours) to make urgent appointment or go to the Emergency room, if any of the following occurs: i. Vaginal bleeding becomes heavy, more than a period. ii. Incision becomes red and sore, or drains pus. iii. Your TEMPERATURE is over 100.4F or you have chill. iv. IV site becomes red and swollen (a little ``knot?? is usually OK) v. Persistent nausea and vomiting vi. Persistent constipation or diarrhea vii. Rash or allergic reaction to medications. Discharge Attestations CURRICULUM DEVELOPMENT SPECIALIST Time Spent in Discharge Care*: greater than 30 min Coding Level of Care Code Acute Code for Chg Fwd
[2024-03-25] MEDS: docusate sodium 100 mg Capsule PO (09:11)
[2024-03-25] MEDS: ibuprofen 800 mg tablet PO (09:12)
[2024-03-25 14:27] VITALS: BP 106/68; PULSE 84; RESP 16; TEMP 36.8
== END 2024-03-25 14:30 | disposition home or self-care (01) ==
LOC: OBGYN 16:49
PROVIDERS: Admitting Provider Obstetrics & Gynecology; PCP Family Medicine; Visit Provider Obstetrics & Gynecology
PROC: (CPT 57288; 2024-03-24 14:40)
DX: N81.2 Incomplete uterovaginal prolapse (principal); R10.2 Pelvic and perineal pain; N39.3 Stress incontinence (female) (male); N72 Inflammatory disease of cervix uteri
CPT/HCPCS: 57288; 58260; 36415; 51798; 80053; 81001; 81025; 85025; 85027; 86850; 86900; 88307; C1713; G0378; J1100; J1885; J1956; J2175; J2250; J2405; J2704; J2710; J3010; J3370; J3490; J7030; J7040; J7050; J7121

== ENCOUNTER 2024-04-16 06:58 | Outpatient (CLI) | payer OTHER, MEDICAID, SELFPAY ==
--- NOTE | 2024-04-16 07:00 | US_ITS ---
WS: [id number] US pelv w/transvag [id number] HISTORY: G89.18 - Other acute postprocedural pain, hysterectomy. COMPARISON: 02/28/2024 Uterus is no longer present. Surgical removal of the uterus since 02/28/2024. Urinary bladder is daiana l. Small amount of fluid at the vaginal cuff. Right ovary: 3.8 cm x 2.5 cm x 3.2 cm. Ovary is mildly enlarged and edematous. Ovary is measuring lar gil in size than on the prior study with multiple small follicles. The vascularity is decreased throu ghout the ovary. There is a small amount of flow but decreased arterial flow. This may be technical. Left ovary: 3.3 cm x 2.2 cm x 2.5 cm. Normal size and vascularity, no cystic or solid masses. No free fluid in the cul-de-sac. US/US pelv w/transvag [id number] IMPRESSION: 1. Status post hysterectomy since the prior study. 2. No midline fluid collection other than a small amount of fluid at the vagin al cuff. 3. RIGHT ovary is slightly enlarged and more edematous than on the prior study with blunted arterial and venous flow. This can be seen with ovarian torsion. There are no additional findings for ovarian torsion and the patient was not in a significant amount of pain during the transvaginal examination. Notified Park Cardona NP at 04/16/2024 10:36 AM.
== END 2024-04-16 06:59 | disposition home or self-care (01) ==
LOC: RAD 06:58
PROVIDERS: PCP Family Medicine; Visit Provider Nurse Practitioner Women's Health
DX: G89.18 Other acute postprocedural pain (principal); Z90.710 Acquired absence of both cervix and uterus
CPT/HCPCS: 76830; 76856

== ENCOUNTER → 2024-04-22 10:49 | Outpatient (BNVA) | payer OTHER, MEDICAID, SELFPAY | PROVIDERS: PCP Family Medicine; Visit Provider Nurse Practitioner | DX: R39.9 Unspecified symptoms and signs involving the genitourinary system (principal); R30.0 Dysuria; R19.7 Diarrhea, unspecified | CPT/HCPCS: 81000; 87077; 87086; 87184 ==

== ENCOUNTER → 2024-05-12 17:59 | Outpatient (BNVA) | payer OTHER, MEDICAID, SELFPAY | PROVIDERS: PCP Family Medicine; Visit Provider Family Medicine | DX: R39.198 Other difficulties with micturition (principal) | CPT/HCPCS: 81000 ==

== ENCOUNTER → 2024-05-18 08:27 | Outpatient (BNVA) | payer OTHER, MEDICAID, SELFPAY | PROVIDERS: PCP Family Medicine; Visit Provider Family Medicine | DX: R53.81 Other malaise (principal); R53.83 Other fatigue; D50.9 Iron deficiency anemia, unspecified; D56.1 Beta thalassemia; Z51.81 Encounter for therapeutic drug level monitoring | CPT/HCPCS: 80053; 83550; 84439; 84443; 85025 ==

== ENCOUNTER → 2024-05-27 10:26 | Outpatient (BNVA) | payer OTHER, MEDICAID, SELFPAY | PROVIDERS: PCP Family Medicine; Visit Provider Obstetrics & Gynecology | DX: N83.201 Unspecified ovarian cyst, right side (principal) | CPT/HCPCS: 76830 ==

== ENCOUNTER 2024-05-29 17:16 | Emergency (ER) | payer OTHER, MEDICAID, SELFPAY ==
[2024-05-29 17:36] VITALS: BP 148/93; PULSE 105; RESP 18; TEMP 36.7; O2SAT 98
--- NOTE | 2024-05-29 17:52 | ED.C_ITS ---
HPI - Psych 2 General: Chief Complaint: Psychiatric Symptoms Stated Complaint: MHE Time Seen by Provider: 05/29/24 17:17 Source: patient Mode of arrival: ambulatory Limitations: no limitations History of Present Illness: Patient is a 19-year-old female who presents to the emergency department complaining of depression and anxiety chronically for many years but worsening recently. She notes a history of suicide attempt in the past by taking a bunch of antibiotic pills, and had subsequent stay at [facility]. She states that she has had recurrent and intermittent suicidal ideations since then, however has been specifically worsening over the past year after giving and undergoing hysterectomy. She states that she has tried many different psychiatric medications but none of them seem to work for her. Currently at this time she is only on as needed hydroxyzine, and this has no longer been helping as it has in the past. She states that her home life is okay, she lives with boyfriend and child. The child has been staying with mom recently due to the patient's worsening mental health issues. Patient does not see a psychiatrist or counselor regularly. She is not reporting any homicidal ideations or current suicidal ideations at this time, however states that she is worried that they are going to keep progressing on her. She does note that she is seeing and hearing things that are not there, does not necessarily elaborate on this. She states that she believes she needs to come into the psychiatric unit at this time for mental health evaluation and medication reconciliation, and does not feel safe at home. She has no other symptoms to report at this time. No current plan is reported. MD complaint: feels depressed Onset (ago): year(s) Duration: intermittent and getting worse History of same: Yes Relieving factors: none Exacerbating factors: other (Worse since giving ) Context: not taking psychiatric medications Associated psychiatric symptoms: depression, auditory hallucinations and visual hallucinations Associated symptoms: Reports auditory hallucinations, visual hallucinations and depression; Deny homicidal ideation or suicidal ideation Treatments prior to arrival: none Review of Systems 2 General: Reports: 10 or more systems reviewed and unremarkable except in HPI and below Const: Denies: fever(s), chills or fatigue Eyes: Denies: change in vision ENMT: Denies: throat pain, ear or mastoid pain or nasal discharge Card: Denies: chest pain, palpitations, swelling of feet/ankles or lightheadedness Resp: Denies: dyspnea, productive cough or wheezing GI: Denies: abdominal pain, nausea, vomiting, diarrhea or constipation : Denies: flank pain, difficulty voiding, dysuria or urinary frequency Musc: Denies: neck pain, back pain or joint pain Skin/Breast: Denies: rash Neuro: Denies: headache(s), numbness in extremities or weakness in extremities Psych: Reports: anxiety, depression, hopelessness, loss of interest, visual hallucinations and auditory hallucinations; Denies: suicidal ideation or homicidal ideation PFSH ED 2 PFSH: Medical History hemorrhage History of anal fissures Allergic rhinitis Thalassemia Mesenteric adenitis Chronic constipation Ovarian cyst Surgical History Hx of hysterectomy Both ovaries in place - 03/24/24 Hx laparoscopic cholecystectomy 04/26/23 History of tonsillectomy Family History Mother Thalassemia Patient is of Citizen Of [place] descent Other Cancer Diabetes Denies family history of Hypertension Social History Smoking and tobacco/nicotine status: current every day tobacco/nicotine user e- cigarettes E-Cigarette Details: vaporizer device E-cig/vape details: 1 canister per week Second hand smoke exposure: Yes Alcohol intake: never Substance/Drug Use: never Adopted: No Household members: family and friend(s) Marital status: Single Highest education level completed: High School Graduate Pets and animals: No Do you think of yourself as: Straight/Heterosexual Current gender identity: Female Special denita needs: No Agree to transfusion: Yes Physical Exam 2 Const: COMMON NORMALS: no acute distress, patient oriented x3 and no limitations GENERAL APPEARANCE: cooperative, comfortable and well developed ORIENTATION/CONSCIOUSNESS: Yes awake, Yes oriented to person, Yes oriented to place and Yes oriented to time HENMT: COMMON NORMALS: normocephalic, atraumatic and hearing grossly normal bilaterally HEAD & SCALP: normocephalic and atraumatic Eye: COMMON NORMALS: Equal, round and reactive pupils present, EOMs intact bilaterally and conjunctivae normal CONJUNCTIVA: Yes conjunctivae normal P UPIL: Yes Equal, round and reactive pupils present Neck/C-Spine: COMMON NORMALS: full ROM, supple and no JVD Resp: COMMON NORMALS: normal respiratory effort, No retractions, No use of accessory muscles and clear to auscultation bilaterally AUSCULTATION: clear to auscultation bilaterally Cardio: COMMON NORMALS: no JVD, regular rate, regular rhythm, No clicks present (Cardio), No murmurs present (Cardio) and No rub (Cardio) RATE: r egular rate RHYTHM: regular rhythm GI: COMMON NORMALS: Normal to inspection, nondistended, normoactive bowel sounds present, Soft to palpation and non-tender AUSCULTATION: Yes normoactive bowel sounds PALPATION: Yes Soft to palpation RECTAL EXAM: d eferred Extremity: COMMON NORMALS: normal to inspection, full ROM and capillary refill normal Neuro: COMMON NORMALS: patient oriented x3, CN's II-XII intact bilaterally, moves all extremities, no focal motor deficits and no sensory deficits noted SENSORIUM/ORIENTATION: Yes oriented to person, Yes oriented to place and Yes oriented to time Psych: COMMON NORMALS: mental status grossly normal, Normal thought process present and speech normal APPEARANCE: Yes grossly normal ATTITUDE: Yes calm ACTIVITY/MOTOR BEHAVIOR: Yes appropriate eye contact SPEECH: Yes normal speech MOOD & AFFECT: Yes depressed mood and Yes anxious THOUGHT PROCESS: Normal thought process present THOUGHT CONTENT: No Suicidality present and No Homicidality present ATTENTION/CONCENTRATION: Yes attention grossly intact MEMORY/COGNITION: Yes memory grossly intact INSIGHT: Good insight present (Psych) JUDGEMENT: Good judgement present (Psych) Skin: COMMON NORMALS: no rashes or lesions noted GENERAL SKIN EXAM: no rashes or lesions noted Course 2 Vital Signs: Vital signs: Vital Signs Temperature 98.1 F 05/29/24 17:36 Pulse Rate 105 H 05/29/24 17:36 Respiratory Rate 18 05/29/24 17:36 Blood Pressure 148/93 05/29/24 17:36 Pulse Oximetry 98 05/29/24 17:36 Oxygen Delivery Me thod Room Air 05/29/24 17:36 MDM - Psych Medical Decision Making Patient was cleared medically after presenting with complaints of worsening depression and anxiety with psychiatric history of intentional overdose and suicide attempt. Initially she was excepted to the [facility], however was later found out that there were no female beds and patient would require transfer. Throughout the ED course she had been making attempts to leave, stating that she feels much better after receiving Ativan and thinks that she can follow-up as outpatient and treat at home as she confirms she would never attempt to kill herself again. Despite my attempts to get her to stay, she request that she will leave AGAINST MEDICAL ADVICE. Initially she was going to stay if she thought that she could stay here, however upon learning on plan to transfer she is very adamant that she wants to go home. She does state that she will come back if she has any recurrence of the thoughts, she has not had any suicidal ideations or plans throughout her ED course today. Lab Data 05/29/24 18:02 05/29/24 18:02 Laboratory Results WBC 6.50 10^3/uL (4.5-13.0) 05/29/24 18:02 RBC 5.92 10^6/uL (3.85-5.65) H 05/29/24 18:02 Hgb 11.20 g/dL (12.4-14.8) L 05/29/24 18:02 Hct 37.5 % (36-47) 05/29/24 18:02 MCV 63.3 fl (85-98) L 05/29/24 18:02 MCH 18.9 pg (27-33) L 05/29/24 18:02 MCHC 29.9 g/dL (30-55) L 05/29/24 18:02 RDW 15.2 % (12.1-15.1) H 05/29/24 18:02 Plt Count 309 10^3/cmm (157-399) 05/29/24 18:02 MPV 10.0 fL (7.4-10.4) 05/29/24 18:02 Neut % (Auto) 54.3 % 05/29/24 18:02 Lymph % (Auto) 36.6 % 05/29/24 18:02 [place] % (Auto) 6.2 % 05/29/24 18:02 Eos % (Auto) 1.8 % 05/29/24 18:02 Baso % (Auto) 0.9 % 05/29/24 18:02 Neut # (Auto) 3.53 10^3/uL (1.8-8.0) 05/29/24 18:02 Lymph # (Auto) 2.4 10^3/uL (1.5-6.5) 05/29/24 18:02 [place] # (Auto) 0.4 10^3/uL (0.2-0.9) 05/29/24 18:02 Eos # (Auto) 0.1 10^3/uL (0.0-0.8) 05/29/24 18:02 Baso # (Auto) 0.1 10^3/uL (0.0-0.1) 05/29/24 18:02 Nucleated RBC % (auto) 0 % 05/29/24 18: Nucleated RBCs # 0.0 /100WBC 05/29/24 18:02 Sodium 138 mmol/L (136-145) 05/29/24 18:02 Potassium 4.1 mmol/L (3.5-5.1) 05/29/24 18:02 Chloride 104 mmol/L (98-107) 05/29/24 18: Carbon Dioxide 25 mmol/L (22-29) 05/29/24 18:02 Anion Gap 13.1 (5-19) 05/29/24 18:02 BUN 14 mg/dL (6-20) 05/29/24 18:02 Creatinine 0.8 mg/dL (0.5-0.9) 05/29/24 18:02 GFR Calculation 91.4 mL/min (90-130) 05/29/24 18:02 Glucose 96 mg/dL (65-115) 05/29/24 18: Calculated Osmolality 286 mOsm/kg (285-295) 05/29/24 18:02 Calcium 9.5 mg/dL (8.5-10.5) 05/29/24 18:02 Total Bilirubin 0.2 mg/dL (0.15-1.2) 05/29/24 18:02 AST 18 U/L (0-32) 05/29/24 18:02 ALT 14 U/L (0-33) 05/29/24 18:02 Alkaline Phosphatase 46 U/L (35-105) 05/29/24 18:02 Total Protein 7.1 g/dL (6.6-8.7) 05/29/24 18: Albumin 4.4 g/dL (3.5-5.2) 05/29/24 18:02 Globulin 2.7 g/dL (1.3-4.6) 05/29/24 18:02 HCG, Qual Negative (Negative) 05/29/24 18:02 Salicylates < 0.3 mg/dL (3-10) L 05/29/24 18:02 Urine Opiates Screen Negative ng/mL (Negative) 05/29/24 17:44 Acetaminophen < 5.0 ug/mL (10-30) L 05/29/24 18:02 Ur Barbiturates Screen Negative ng/mL (Negative) 05/29/24 17:44 Ur Phencyclidine Scrn Negative ng/mL (Negative) 05/29/24 17:44 Ur Amphetamines Screen Negative ng/mL (Negative) 05/29/24 17:44 U Benzodiazepines Scrn Negative ng/mL (Negative) 05/29/24 17:44 Urine Cocaine Screen Negative ng/mL (Negative) 05/29/24 17:44 U Marijuana (THC) Screen Positive ng/mL (Negative) H 05/29/24 17:44 Ethyl Alcohol < 10 mg/dL (0-10) 05/29/24 18:02 No radiology studies performed this visit Discharge Plan Discharge Patient Disposition: Left Against Medical Advice Clinical Impression: Anxiety and depression, Left against medical advice Condition: Stable Prescriptions: No Action triamcinolone acetonide 0.1 % cream 1 applic topical TID Qty: 15 0RF omeprazole 40 mg capsule,delayed release(DR/EC) 40 mg PO DAILY Qty: 30 3RF Metamucil 3.4 gram/5.4 gram powder 1 tbsp PO DAILY Qty: 660 1RF Rx Instructions: mix into at least 8 oz of water or juice before administering fluticasone propionate [Flonase Allergy Relief] 50 mcg/actuation spray,suspension 1 spray intranasal BID PRN (Reason: nasal congestion) Qty: 16 0RF Rx Instructions: administer into each nostril hydroxyzine HCl 25 mg tablet 25 mg PO QID PRN (Reason: anxiety) Qty: 30 2RF mupirocin 2 % ointment 1 applic topical TID Qty: 22 0RF polyethylene glycol 3350 [Miralax] 17 gram/dose powder 4 g PO DAILY Qty: 119 0RF lidocaine 5 % ointment 1 applic topical DAILY PRN (Reason: pain) Qty: 30 0RF acetaminophen 500 mg Tablet 1,000 mg PO QID PRN (Reason: Pain) ibuprofen 800 mg tablet 800 mg PO TID PRN (Reason: Pain) Referrals: Dg Perla MD [Primary Care Provider] - Coding Level of Care Code ED Meat Products Demonstrator for Anmol Estevez
[2024-05-29 18:02] LABS: Amphetamines Screen Urine Negative (Negative); Barbiturates Screen Urine Negative (Negative); Benzodiazepines Screen Urine Negative (Negative); Cocaine Screen Urine Negative (Negative); Opiate Screen Urine Negative (Negative); PCP Screen Urine Negative (Negative); THC Screen Urine Positive (Negative)
[2024-05-29 18:13] LABS: Basophils # 0.1 10^3/uL (0.0-0.1); Basophils % 0.9 %; Eosinophils # 0.1 10^3/uL (0.0-0.8); Eosinophils % 1.8 %; Hematocrit 37.5 % (36-47); Lymphocytes # 2.4 10^3/uL (1.5-6.5); Lymphocytes % 36.6 %; Mean Corpuscular HGB Conc 29.9 g/dL (30-55); Mean Corpuscular Hemoglobin 18.9 pg (27-33); Mean Corpuscular Volume 63.3 fl (85-98); Monocytes # 0.4 10^3/uL (0.2-0.9); Monocytes % 6.2 %; Neutrophils # 3.53 10^3/uL (1.8-8.0); Neutrophils % 54.3 %; Nucleated Red Blood Cells % 0 %; Platelet Count 309 10^3/cmm (157-399); Red Blood Count 5.92 10^6/uL (3.85-5.65); Red Cell Distribution Width 15.2 % (12.1-15.1)
[2024-05-29 18:27] LABS: HCG, Serum Qual Negative (Negative)
[2024-05-29 18:34] LABS: Alanine Aminotransferase 14 U/L (0-33); Albumin Level 4.4 g/dL (3.5-5.2); Alkaline Phosphatase 46 U/L (35-105); Anion Gap 13.1 (5-19); Aspartate Amino Transferase 18 U/L (0-32); Blood Urea Nitrogen 14 mg/dL (6-20); Calcium 9.5 mg/dL (8.5-10.5); Carbon Dioxide 25 mmol/L (22-29); Chloride 104 mmol/L (98-107); Globulin 2.7 g/dL (1.3-4.6); Glomerular Filtration Rate 91.4 mL/min (90-130); Glucose 96 mg/dL (65-115); Osmolality Calculated 286 mOsm/kg (285-295); Potassium 4.1 mmol/L (3.5-5.1); Sodium 138 mmol/L (136-145); Total Bilirubin 0.2 mg/dL (0.15-1.2); Total Protein 7.1 g/dL (6.6-8.7)
[2024-05-29 18:36] LABS: Acetaminophen < 5.0 ug/mL (10-30); Alcohol Level < 10 mg/dL (0-10); Salicylate < 0.3 mg/dL (3-10)
[2024-05-29] MEDS: LORazepam 1 mg Tablet PO (19:25)
== END 2024-05-29 20:10 | disposition left against medical advice (07) ==
PROVIDERS: Emergency Provider Physician Assistant; PCP Family Medicine
DX: F41.8 Other specified anxiety disorders (principal); Z53.29 Procedure and treatment not carried out because of patient's decision for other reasons; F17.290 Nicotine dependence, other tobacco product, uncomplicated
CPT/HCPCS: 36415; 80053; 80306; 80307; 84703; 85025; 99283

== ENCOUNTER → 2024-06-27 13:33 | Outpatient (BNVA) | payer MEDICAID, SELFPAY | PROVIDERS: PCP Family Medicine; Visit Provider Emergency Medicine | DX: J02.9 Acute pharyngitis, unspecified (principal) | CPT/HCPCS: 87071; 87880 ==

== ENCOUNTER 2024-08-01 11:20 | Emergency (ER) | payer MEDICAID, SELFPAY ==
[2024-08-01 11:33] VITALS: BP 122/70; PULSE 95; RESP 14; TEMP 36.9; O2SAT 97; BMI 38.4
--- NOTE | 2024-08-01 12:44 | ED_ITS ---
HPI - Extremity Problem General: Chief complaint: Extremity Problem,Nontraumatic Stated complaint: infected cut on right ankle Time Seen by Provider: 08/01/24 11:28 History of Present Illness: 19-year-old female presents emergency ro om she has a superficial laceration on the posterior portion of the right heel overlying Achilles insertion. She was seen earlier this week and started on Augmentin and topical mupirocin. She is complaining of continued discomfort. No drainage from the wound. No fever at home Associated symptoms: Deny fever(s) Related Data Home Medications Medication Instructions Recorded Confirmed acetaminophen 500 mg tablet 1,000 mg PO QID PRN Pain 03/23/24 07/28/24 Previous Rx's Medication Instructions Recorded fluticasone propionate 50 1 spray intranasal BID PRN nasal 01/22/24 mcg/actuation nasal congestion #16 grams spray,suspension (Flonase Allergy Relief) hydroxyzine HCl 25 mg tablet 25 mg PO QID PRN anxiety #30 tabs 03/20/24 lidocaine 5 % topical ointment 1 applic topical DAILY PRN pain 04/14/24 #30 grams triamcinolone acetonide 0.1 % 1 applic topical TID #15 grams 05/03/24 topical cream omeprazole 40 mg capsule,delayed 40 mg PO DAILY #30 caps 05/18/24 release ondansetron 8 mg disintegrating 8 mg PO Q8H PRN nausea and 06/20/24 tablet vomiting 5 days #15 tabs cetirizine 10 mg tablet (Zyrtec) 10 mg PO DAILY #30 tabs 06/27/24 ibuprofen 800 mg tablet See Rx Instructions .Route 06/30/24 .COMPLEX #90 tabs amoxicillin 875 mg-potassium 1 tab PO BID 7 days #14 tabs 07/28/24 clavulanate 125 mg tablet mupirocin 2 % topical ointment 1 applic topical TID #22 grams 07/28/24 Allergies Allergy/AdvReac Type Severity Reaction Status Date / Time ampicillin Allergy ALGY-Difficulty Verified 08/01/24 11:32 Swallowing bactrim Allergy Intermediate ADR-light Uncoded 08/01/24 11:32 headed, and achy Review of Systems Const: Denies: fever(s) or chills [facility] PFSH: Medical History Psychiatric care hemorrhage History of anal fissures Allergic rhinitis Thalassemia Mesenteric adenitis Chronic constipation Ovarian cyst Surgical History Hx of hysterectomy Both ovaries in place - 03/24/24 Hx laparoscopic cholecystectomy 04/26/23 History of tonsillectomy Family History Mother Thalassemia Patient is of [place] descent Other Cancer Diabetes Denies family history of Hypertension Social History Smoking and tobacco/nicotine status: never used tobacco/nicotine Second hand smoke exposure: Yes Alcohol intake: never Substance/Drug Use: never Adopted: No Household members: family and friend(s) Marital status: Single Highest education level completed: High School Graduate Pets and animals: No Do you think of yourself as: Straight/Heterosexual Current gender identity: Female Special denita needs: No Agree to transfusion: Yes Physical Exam Narrative: EXAM NARRATIVE: Examination of the right heel posterior aspect over lying the insertion of the Achilles tendon laceration has dry eschar in place there is no drainage there is no redness there is no swelling. No expression of any purulent fluid with palpation. No lymphangitic streaking no popliteal lymph nodes Course Vital Signs: Vital signs: Vital Signs Temperature 98.5 F 08/01/24 11:33 Pulse Rate 95 08/01/24 11:33 Respiratory Rate 14 08/01/24 11:33 Blood Pressure 122/70 08/01/24 11:33 Pulse Oximetry 97 08/01/24 11:33 Oxygen Delivery Me thod Room Air 08/01/24 11:33 MDM - Extremity (Nontraumatic) Medical Decision Making Wound looks good there is no sign of significant infection. Continue the topical mupirocin and the Augmentin. Moist heat as needed follow-up with primary care as scheduled. No radiology studies performed this visit Discharge Plan Discharge Patient Disposition: Home Clinical Impression: Laceration Condition: Stable Prescriptions: No Action triamcinolone acetonide 0.1 % cream 1 applic topical TID Qty: 15 0RF omeprazole 40 mg capsule,delayed release(DR/EC) 40 mg PO DAILY Qty: 30 3RF fluticasone propionate [Flonase Allergy Relief] 50 mcg/actuation spray,mcclain spension 1 spray intranasal BID PRN (Reason: nasal congestion) Qty: 16 0RF Rx Instructions: administer into each nostril hydroxyzine HCl 25 mg tablet 25 mg PO QID PRN (Reason: anxiety) Qty: 30 2RF ondansetron 8 mg tablet,disintegrating 8 mg PO Q8H PRN (Reason: nausea and vomiting) 5 Days Qty: 15 0RF cetirizine [Zyrtec] 10 mg tablet 10 mg PO DAILY Qty: 30 0RF lidocaine 5 % ointment 1 applic topical DAILY PRN (Reason: pain) Qty: 30 0RF ibuprofen 800 mg tablet See Rx Instructions .ROUTE .COMPLEX Qty: 90 3RF Dose Instruction: TAKE 1 TABLET BY MOUTH THREE TIMES A DAY Rx Instructions: TAKE 1 TABLET BY MOUTH THREE TIMES A DAY amoxicillin-pot clavulanate 875-125 mg tablet 1 tab PO BID 7 Days Qty: 14 0RF mupirocin 2 % ointment 1 applic topical TID Qty: 22 0RF acetaminophen 500 mg Tablet 1,000 mg PO QID PRN (Reason: Pain) Discharge Orders: Discharge ED (Routine); Ordered 08/01/24 Ordered By: Jose De La O Referrals: Dg Perla MD [Primary Care Provider] - Discharge Diet: Usual diet Discharge Activity: Resume usual activity Patient Instructions: Opioid Safety, Pain Management Activity Restrictions/Additional Instructions: Thank you for choosing [facility] for your healthcare needs today. It is very important that you follow up as instructed or that you return to the Emergency Department should you have concerns or if your condition changes or worsens in any way. You are seen today for concerns of a laceration on your right heel. There is no evidence of significant laceration. No evidence of proximal spread. Recommend that you continue the previously prescribed medications of topical antibiotic and a oral antibiotic follow-up with primary care doctor Coding Level of Care Code ED Hand Tube Bender for Anmol Estevez
[2024-08-01 12:52] VITALS: BP 133/80; PULSE 99; O2SAT 97
== END 2024-08-01 12:54 | disposition home or self-care (01) ==
PROVIDERS: Emergency Provider Family Medicine; PCP Family Medicine
DX: S91.311A Laceration without foreign body, right foot, initial encounter (principal); Z77.22 Contact with and (suspected) exposure to environmental tobacco smoke (acute) (chronic); X58.XXXA Exposure to other specified factors, initial encounter
CPT/HCPCS: 99282

== ENCOUNTER 2024-09-18 23:06 | Emergency (ER) | payer OTHER, MEDICAID, SELFPAY ==
[2024-09-18 23:20] VITALS: BP 130/83; PULSE 83; RESP 16; TEMP 36.6; O2SAT 98; BMI 39.9
--- NOTE | 2024-09-19 00:13 | CTR_ITS ---
PROCEDURE INFORMATION: Exam: CT Abdomen And Pelvis With Contrast Exam date and time: 09/19/2024 1:14 AM Age: 19 years old Clinical indication: Abdominal pain; Localized; Right lower quadrant (rlq); Prior surgery; Surgery date: 6+ months; Surgery type: Gb. Hysterectomy; Patient HX: C/O rlq pain TECHNIQUE: Imaging protocol: Computed tomography of the abdomen and pelvis with contrast. Radiation optimization: All CT scans at this facility use at least one of these dose optimization techniques: automated exposure control; mA and/or kV adjustment per patient size (includes targeted exams where dose is matched to clinical indication); or iterative reconstruction. Contrast material: OMNI 350; Contrast volume: 100 ml; Contrast route: INTRAVENOUS (IV); COMPARISON: CT abdomen pelvis w con* [id number] 07/11/2023 1:23 PM RADIATION DOSE METRICS: Total DLP (mGy-cm): 1073.93 FINDINGS: Liver: Normal. No mass. Gallbladder and biliary ducts: There has been cholecystectomy. Pancreas: Normal. No ductal dilation. Spleen: Normal. No splenomegaly. Adrenal glands: Normal. No mass. Kidneys and ureters: Normal. No hydronephrosis. Stomach and bowel: Unremarkable. No obstruction. No mucosal thickening. Appendix: No evidence of appendicitis. Intraperitoneal space: Unremarkable. No free air. No significant fluid collection. Vasculature: Unremarkable. No abdominal aortic aneurysm. Lymph nodes: Unremarkable. No enlarged lymph nodes. Urinary bladder: Unremarkable as visualized. Reproductive: There has been hysterectomy. Bones/joints: Unremarkable. No acute fracture. Soft tissues: Unremarkable. CT/CT abdomen pelvis w con* [id number] IMPRESSION: No acute findings.
[2024-09-19 00:41] LABS: Basophils # 0.1 10^3/uL (0.0-0.1); Basophils % 0.8 %; Eosinophils # 0.1 10^3/uL (0.0-0.8); Eosinophils % 1.5 %; Lymphocytes % 27.4 %; Mean Corpuscular Volume 63.5 fl (85-98); Mean Platelet Volume 10.2 fL (7.4-10.4); Monocytes # 0.4 10^3/uL (0.2-0.9); Monocytes % 5.4 %; Neutrophils # 4.81 10^3/uL (1.8-8.0); Neutrophils % 64.8 %; Nucleated Red Blood Cells % 0 %; Platelet Count 281 10^3/cmm (157-399); Red Blood Count 5.83 10^6/uL (3.85-5.65); Red Cell Distribution Width 16.2 % (12.1-15.1); White Blood Count 7.42 10^3/uL (4.5-13.0)
[2024-09-19 00:48] LABS: Bacteria Urine None Seen /hpf; RBC Urine 0-2 /hpf (0-2); Squamous Epithelial Cell Urine 0-5 /hpf (0-5); WBC Urine 0-5 /hpf (0-5)
[2024-09-19 00:53] LABS: Add Urine Microscopic? YES; Bilirubin Urine Negative (Negative); Blood Urine Negative (Negative); Glucose Urine UA Negative (Normal); Ketones Urine Negative (Negative); Leukocyte Esterase Urine Negative (Negative); Nitrate Urine Negative (Negative); Protein Urine Negative (Negative); Specific Gravity, Urine 1.023 (1.005-1.030); Urine Appearance Clear (CLEAR); Urine Color Yellow (Yellow); pH Urine 5.5 (5-7)
[2024-09-19 00:56] LABS: HCG, Serum Qual Negative (Negative)
--- NOTE | 2024-09-19 00:59 | ED_ITS ---
HPI - Abdominal Pain 2 General: Chief Complaint: Abdominal Pain Stated Complaint: N\Headache\Pain Rt Side ABD Time Seen by Provider: 09/18/24 23:31 History of Present Illness: 19-year-old female with a history of rig ht lower quadrant pain. Pain started earlier today. She has been nauseated, no vomiting. No diarrhea. She has a history of a hysterectomy as well as cholecystectomy. Related Data Home Medications Medication Instructions Recorded Confirmed acetaminophen 500 mg tablet 1,000 mg PO QID PRN Pain 03/23/24 09/09/24 Previous Rx's Medication Instructions Recorded fluticasone propionate 50 1 spray intranasal BID PRN nasal 01/22/24 mcg/actuation nasal congestion #16 grams spray,suspension (Flonase Allergy Relief) hydroxyzine HCl 25 mg tablet 25 mg PO QID PRN anxiety #30 tabs 03/20/24 cetirizine 10 mg tablet (Zyrtec) 10 mg PO DAILY #30 tabs 06/27/24 omeprazole 40 mg capsule,delayed 40 mg PO DAILY #30 caps 08/21/24 release dicyclomine 10 mg capsule 10 mg PO TID #20 caps 09/07/24 ondansetron 4 mg disintegrating 4 mg PO Q8H PRN nausea and 09/09/24 tablet vomiting #10 tabs Allergies Allergy/AdvReac Type Severity Reaction Status Date / Time ampicillin Allergy ALGY-Difficulty Verified 09/09/24 09:53 Swallowing bactrim Allergy Intermediate ADR-light Uncoded 09/09/24 09:53 headed, and achy [facility] ED 2 PFSH: Medical History Psychiatric care hemorrhage History of anal fissures Allergic rhinitis Thalassemia Mesenteric adenitis Chronic constipation Ovarian cyst Surgical History Hx of hysterectomy Both ovaries in place - 03/24/24 Hx laparoscopic cholecystectomy 04/26/23 History of tonsillectomy Family History Mother Thalassemia Patient is of Indian descent Other Cancer Diabetes Denies family history of Hypertension Social History Smoking and tobacco/nicotine status: never used tobacco/nicotine Second hand smoke exposure: Yes Alcohol intake: never Substance/Drug Use: never Adopted: No Household members: family and friend(s) Marital status: Single Highest education level completed: High School Graduate Pets and animals: No Do you think of yourself as: Straight/Heterosexual Current gender identity: Female Special denita needs: No Agree to transfusion: Yes Physical Exam 2 Const: COMMON NORMALS: no acute distress GENERAL APPEARANCE: cooperative; not ill appearing and not frail appearing HENMT: COMMON NORMALS: normocephalic, atraumatic and Normal external nose present HEAD & SCALP: normocephalic and atraumatic FACE & SINUS: normal facial exam and face symmetric NOSE: Normal external nose present Eye: COMMON NORMALS: Equal, round and reactive pupils present and EOMs intact bilaterally PUPIL: Yes Equal, round and reactive pupils present Neck/C-Spine: GENERAL: Yes trachea midline Chest: CHEST: Yes Symmetrical chest wall rise Resp: COMMON NORMALS: normal respiratory effort, No retractions, No use of accessory muscles and clear to auscultation bilaterally AUSCULTATION: clear to auscultation bilaterally Cardio: COMMON NORMALS: regular rate and regular rhythm RATE: regular rate RHYTHM: regular rhythm GI: COMMON NORMALS: Normal to inspection, nondistended, normoactive bowel sounds present PALPATION: Yes Tenderness to palpation present (GI) Details: RLQ and Yes Guarding due to palpation present (GI) Extremity: COMMON NORMALS: no pedal edema Neuro: FRANDY COMA SCALE: document GCS findings [place] coma scale eye opening: Spontaneous Frandy coma scale verbal response: Orientated [place] coma scale motor response: Obey commands [place] coma scale total score: 15 S ENSORY EXAM: Yes extremities (intact) Psych: COMMON NORMALS: speech normal SPEECH: Yes normal speech Skin: COMMON NORMALS: no rashes or lesions noted GENERAL SKIN EXAM: no rashes or lesions noted Course 2 Vital Signs: Vital signs: Vital Signs Temperature 97.8 F 09/18/24 23:20 Pulse Rate 77 09/19/24 03:13 Respiratory Rate 14 09/19/24 03:13 Blood Pressure 106/66 09/19/24 03:13 Pulse Oximetry 100 09/19/24 03:13 Oxygen Delivery Me thod Room Air 09/18/24 23:20 MDM - Abdominal Pain Medical Decision Making White blood cell count is 7.42. Hemoglobin is 11. Urinalysis is negative. CT for right lower quadrant pain is pending. CT is negative. Pain is relieved. Will discharge to return for worsening symptoms. Lab Data 09/19/24 00:32 09/19/24 00:32 Labs/Radiology: Radiology Impressions Abdomen/Pelvis CT 09/19/24 00:13 IMPRESSION: No acute findings. Laboratory Results WBC 7.42 10^3/uL (4.5-13.0) 09/19/24 00:32 RBC 5.83 10^6/uL (3.85-5.65) H 09/19/24 00:32 Hgb 11.10 g/dL (12.4-14.8) L 09/19/24 00:32 Hct 37.0 % (36-47) 09/19/24 00:32 MCV 63.5 fl (85-98) L 09/19/24 00:32 MCH 19.0 pg (27-33) L 09/19/24 00:32 MCHC 30.0 g/dL (30-55) 09/19/24 00:32 RDW 16.2 % (12.1-15.1) H 09/19/24 00:32 Plt Count 281 10^3/cmm (157-399) 09/19/24 00:32 MPV 10.2 fL (7.4-10.4) 09/19/24 00:32 Neut % (Auto) 64.8 % 09/19/24 00:32 Lymph % (Auto) 27.4 % 09/19/24 00:32 [place] % (Auto) 5.4 % 09/19/24 00:32 Eos % (Auto) 1.5 % 09/19/24 00:32 Baso % (Auto) 0.8 % 09/19/24 00:32 Neut # (Auto) 4.81 10^3/uL (1.8-8.0) 09/19/24 00:32 Lymph # (Auto) 2.0 10^3/uL (1.5-6.5) 09/19/24 00:32 [place] # (Auto) 0.4 10^3/uL (0.2-0.9) 09/19/24 00:32 Eos # (Auto) 0.1 10^3/uL (0.0-0.8) 09/19/24 00:32 Baso # (Auto) 0.1 10^3/uL (0.0-0.1) 09/19/24 00:32 Nucleated RBC % (auto) 0 % 09/19/24 00:32 Nucleated RBCs # 0.0 /100WBC 09/19/24 00:32 Sodium 140 mmol/L (136-145) 09/19/24 00:32 Potassium 3.8 mmol/L (3.5-5.1) 09/19/24 00:32 Chloride 104 mmol/L (98-107) 09/19/24 00:32 Carbon Dioxide 25 mmol/L (22-29) 09/19/24 00:32 Anion Gap 14.8 (5-19) 09/19/24 00:32 BUN 12 mg/dL (6-20) 09/19/24 00:32 Creatinine 0.7 mg/dL (0.5-0.9) 09/19/24 00:32 GFR Calculation 106.7 mL/min (90-130) 09/19/24 00:32 Glucose 93 mg/dL (65-115) 09/19/24 00:32 Calculated Osmolality 289 mOsm/kg (285-295) 09/19/24 00:32 Calcium 8.9 mg/dL (8.5-10.5) 09/19/24 00:32 Total Bilirubin 0.3 mg/dL (0.15-1.2) 09/19/24 00:32 AST 16 U/L (0-32) 09/19/24 00:32 ALT 12 U/L (0-33) 09/19/24 00:32 Alkaline Phosphatase 42 U/L (35-105) 09/19/24 00:32 C-Reactive Protein 6.3 mg/L (0.0-4.9) H 09/19/24 00:32 Total Protein 6.8 g/dL (6.6-8.7) 09/19/24 00:32 Albumin 4.5 g/dL (3.5-5.2) 09/19/24 00:32 Globulin 2.3 g/dL (1.3-4.6) 09/19/24 00:32 HCG, Qual Negative (Negative) 09/19/24 00:32 Urine Color Yellow (Yellow) 09/19/24 00:00 Urine Appearance Clear (CLEAR) 09/19/24 00:00 Urine pH 5.5 (5-7) 09/19/24 00:00 Ur Specific [place] 1.023 (1.005-1.030) 09/19/24 00:00 Urine Protein Negative (Negative) 09/19/24 00:00 Urine Glucose (UA) Negative (Normal) 09/19/24 00:00 Urine Ketones Negative (Negative) 09/19/24 00:00 Urine Blood Negative (Negative) 09/19/24 00:00 Urine Nitrate Negative (Negative) 09/19/24 00:00 Urine Bilirubin Negative (Negative) 09/19/24 00:00 Urine Urobilinogen 1.0 mg/dL (Negative) 09/19/24 00:00 Ur Leukocyte Esterase Negative (Negative) 09/19/24 00:00 Urine RBC 0-2 /hpf (0-2) 09/19/24 00:00 Urine WBC 0-5 /hpf (0-5) 09/19/24 00:00 Ur Squamous Epith Cells 0-5 /hpf (0-5) 09/19/24 00:00 Amorphous Sediment Not Reportable 09/19/24 00:00 Urine Bacteria None seen /hpf (NONE) 09/19/24 00:00 Hyaline Casts 0.40 /lpf 09/19/24 00:00 All radiology interpretation(s) finalized by discharge Discharge Plan Discharge Patient Disposition: Home Clinical Impression: Right lower quadrant abdominal pain Condition: Stable Prescriptions: No Action dicyclomine 10 mg capsule 10 mg PO TID Qty: 20 0RF fluticasone propionate [Flonase Allergy Relief] 50 mcg/actuation spray,suspension 1 spray intranasal BID PRN (Reason: nasal congestion) Qty: 16 0RF Rx Instructions: administer into each nostril hydroxyzine HCl 25 mg tablet 25 mg PO QID PRN (Reason: anxiety) Qty: 30 2RF cetirizine [Zyrtec] 10 mg tablet 10 mg PO DAILY Qty: 30 0RF ondansetron 4 mg tablet,disintegrating 4 mg PO Q8H PRN (Reason: nausea and vomiting) Qty: 10 0RF omeprazole 40 mg capsule,delayed release(DR/EC) 40 mg PO DAILY Qty: 30 9RF acetaminophen 500 mg Tablet 1,000 mg PO QID PRN (Reason: Pain) Discharge Orders: Discharge ED (Routine); Ordered 09/19/24 Ordered By: Luisito Payton Referrals: Dg Perla MD [Primary Care Provider] - 1-3 days Patient Instructions: Abdominal Pain (ED), Opioid Safety, Pain Management Activity Restrictions/Additional Instructions: Return for fever, worsening pain, vomiting liquids or medications, other concerning symptoms. See your doctor next week. Call Saturday for an appointment. Coding Level of Care Code ED Line Production Cook for Anmol Estevez
[2024-09-19] MEDS: morphine 4 mg/mL SDV 1 mL IVP (01:01)
[2024-09-19] MEDS: ketorolac 30 mg/mL INJ IVP (01:01)
[2024-09-19] MEDS: ondansetron 2 mg/ML SDV 2 mL 4 MG IVP (01:01)
[2024-09-19 01:12] LABS: Alanine Aminotransferase 12 U/L (0-33); Albumin Level 4.5 g/dL (3.5-5.2); Alkaline Phosphatase 42 U/L (35-105); Anion Gap 14.8 (5-19); Aspartate Amino Transferase 16 U/L (0-32); Blood Urea Nitrogen 12 mg/dL (6-20); C Reactive Protein 6.3 mg/L (0.0-4.9); Calcium 8.9 mg/dL (8.5-10.5); Carbon Dioxide 25 mmol/L (22-29); Chloride 104 mmol/L (98-107); Creatinine Clr Calc Pharmacy 179.5281; Globulin 2.3 g/dL (1.3-4.6); Glomerular Filtration Rate 106.7 mL/min (90-130); Glucose 93 mg/dL (65-115); Osmolality Calculated 289 mOsm/kg (285-295); Potassium 3.8 mmol/L (3.5-5.1); Sodium 140 mmol/L (136-145); Total Bilirubin 0.3 mg/dL (0.15-1.2); Total Protein 6.8 g/dL (6.6-8.7)
[2024-09-19] MEDS: iohexol 350 mg/mL 500 mL Btl (per mL) IV (01:18)
[2024-09-19 01:27] VITALS: BP 106/74; PULSE 60; RESP 18; O2SAT 98
[2024-09-19 02:23] VITALS: BP 93/66; PULSE 70; RESP 16; O2SAT 98
[2024-09-19 03:13] VITALS: BP 106/66; PULSE 77; RESP 14; O2SAT 100
== END 2024-09-19 02:38 | disposition home or self-care (01) ==
PROVIDERS: Emergency Provider Emergency Medicine; PCP Family Medicine
DX: R10.31 Right lower quadrant pain (principal)
CPT/HCPCS: 36415; 74177; 80053; 81001; 84703; 85025; 86140; 96374; 96375; 99285; J1885; J2270; J2405

== ENCOUNTER → 2025-01-23 11:45 | Outpatient (BNVA) | payer OTHER, MEDICAID, SELFPAY | PROVIDERS: PCP Family Medicine; Visit Provider Nurse Practitioner | DX: R50.9 Fever, unspecified (principal) | CPT/HCPCS: 87400; 87426 ==

== ENCOUNTER 2025-03-21 02:57 | Emergency (ER) | payer OTHER, SELFPAY ==
[2025-03-21 03:05] VITALS: BP 132/92; PULSE 98; RESP 20; TEMP 36.9; O2SAT 98; BMI 40.6
[2025-03-21 04:02] LABS: Bacteria Urine None Seen /hpf; Hyaline Casts Urine 0-4 /lpf; RBC Urine 0-2 /hpf (0-2); Squamous Epithelial Cell Urine 0-5 /hpf (0-5); WBC Urine 0-5 /hpf (0-5)
[2025-03-21 04:09] LABS: Add Urine Microscopic? YES; Bilirubin Urine Negative (Negative); Blood Urine Negative (Negative); Glucose Urine UA Negative (Normal); Ketones Urine Negative (Negative); Leukocyte Esterase Urine Negative (Negative); Nitrate Urine Negative (Negative); Protein Urine Negative (Negative); Specific Gravity, Urine 1.005 (1.005-1.030); Urine Appearance Clear (CLEAR); Urine Color Yellow (Yellow); Urobilinogen Urine 0.2 mg/dL (Negative); pH Urine 6.5 (5-7)
--- NOTE | 2025-03-21 04:33 | W.ED.FEMALGU ---
HPI - Female Genitourinary General: Chief complaint: Urogenital-Female Stated complaint: trouble urinating feels like baloon in vag Time Seen by Provider: 03/21/25 03:19 History of Present Illness: 19-year-old female with a history of uterine prolapse. She is status post hysterectomy and sling procedure 1 year ago. She presents with a full feeling in her vagina, and some urinary frequency with trouble starting her stream. No fever. No vaginal discharge or bleeding. Some mild pelvic pain. She says that it feels like when she previously had a prolapse. Related Data Home Medications ?Medication ?Instructions ?Recorded ?Confirmed acetaminophen 500 mg tablet 1,000 mg PO QID PRN Pain 03/23/24 01/23/25 Previous Rx's ?Medication ?Instructions ?Recorded fluticasone propionate 50 1 spray intranasal BID PRN nasal 01/22/24 mcg/actuation nasal congestion #16 grams spray,suspension (Flonase Allergy Relief) hydroxyzine HCl 25 mg tablet 25 mg PO QID PRN anxiety #30 tabs 03/20/24 cetirizine 10 mg tablet (Zyrtec) 10 mg PO DAILY #30 tabs 06/27/24 omeprazole 40 mg capsule,delayed 40 mg PO DAILY #30 caps 08/21/24 release dicyclomine 10 mg capsule 10 mg PO TID #20 caps 09/07/24 cholestyramine (with sugar) 4 gram 4 g PO BID #348.6 grams 09/30/24 oral powder benzonatate 100 mg capsule 100 mg PO TID PRN cough #30 caps 12/15/24 ondansetron 4 mg disintegrating 4 mg PO Q8H PRN nausea and 01/23/25 tablet vomiting #10 tabs ibuprofen 800 mg tablet See Rx Instructions .Route 03/02/25 .COMPLEX #60 tabs hydrocodone 5 mg-acetaminophen 325 1 tab PO Q8H PRN pain #7 tabs 03/21/25 mg tablet Allergies Allergy/AdvReac Type Severity Reaction Status Date / Time sulfamethoxazole (From Allergy Intermediate ADR-light Verified 01/23/25 11:20 Bactrim) headed, and achy trimethoprim (From Bactrim) Allergy Intermediate ADR-light Verified 01/23/25 11:20 headed, and achy ampicillin Allergy ALGY-Difficulty Verified 01/23/25 11:20 Swallowing PFSH ED PFSH: Medical History Psychiatric care hemorrhage History of anal fissures Allergic rhinitis Thalassemia Mesenteric adenitis Chronic constipation Ovarian cyst Surgical History Hx of hysterectomy Both ovaries in place - 03/24/24 Hx laparoscopic cholecystectomy 04/26/23 History of tonsillectomy Family History Mother Thalassemia Patient is of [place] descent Other Cancer Diabetes Denies family history of Hypertension Social History Smoking and tobacco/nicotine status: current every day tobacco/nicotine user e-cigarettes E-Cigarette Details: vaporizer device E-cig/vape details: 1 canister per week Second hand smoke exposure: Yes Alcohol intake: never Substance/Drug Use: never Adopted: No Household members: family and friend(s) Marital status: Single Highest education level completed: High School Graduate Pets and animals: No Do you think of yourself as: Straight/Heterosexual Current gender identity: Female Special denita needs: No Agree to transfusion: Yes Physical Exam Const: COMMON NORMALS: no acute distress GENERAL APPEARANCE: cooperative; not ill appearing and not frail appearing HENMT: COMMON NORMALS: normocephalic, atraumatic and Normal external nose present HEAD & SCALP: normocephalic and atraumatic FACE & SINUS: normal facial exam and face symmetric NOSE: Normal external nose present Eye: COMMON NORMALS: Equal, round and reactive pupils present and EOMs intact bilaterally PUPIL: Yes Equal, round and reactive pupils present Neck/C-Spine: GENERAL: Yes trachea midline Chest: CHEST: Yes Symmetrical chest wall rise Resp: COMMON NORMALS: normal respiratory effort, No retractions, No use of accessory muscles and clear to auscultation bilaterally AUSCULTATION: clear to auscultation bilaterally Cardio: COMMON NORMALS: regular rate and regular rhythm RATE: regular rate RHYTHM: regular rhythm GI: COMMON NORMALS: Normal to inspection, nondistended, normoactive bowel sounds present : EXTERNAL FEMALE EXAM: No external swelling and No lesion SPECULUM EXAM - VAGINA: Yes tenderness and Yes other (Bladder prolapse and vaginal vault) Extremity: COMMON NORMALS: no pedal edema Neuro: FRANDY COMA SCALE: document GCS findings Frandy coma scale eye opening: Spontaneous Frandy coma scale verbal response: Orientated Frandy coma scale motor response: Obey commands Frandy coma scale total score: 15 SENSORY EXAM: Yes extremities (intact) Psych: COMMON NORMALS: speech normal SPEECH: Yes normal speech Skin: COMMON NORMALS: no rashes or lesions noted GENERAL SKIN EXAM: no rashes or lesions noted Course Vital Signs: Vital signs: Vital Signs Temperature 98.4 F 03/21/25 03:05 Pulse Rate 68 03/21/25 04:41 Respiratory Rate 16 03/21/25 04:41 Blood Pressure 118/76 03/21/25 04:41 Pulse Oximetry 98 03/21/25 04:41 Oxygen Delivery Me thod Room Air 03/21/25 04:41 MDM - Female Medical Decision Making The patient has bladder prolapse on vaginal exam here. Speculum was used to reduce the prolapse at least partially. Initially, she felt as if it was easier to urinate, but the prolapse returned quickly. However, bladder scan revealed 0 cc in her bladder postvoid. She is able to void at least. Spoke with gynecology. Only recommendations are outpatient follow-up in the clinic for further evaluation, possible fitment of a pessary versus surgical intervention. Lab Data Laboratory Results Urine Color Yellow (Yellow) 03/21/25 03:46 Urine Appearance Clear (CLEAR) 03/21/25 03:46 Urine pH 6.5 (5-7) 03/21/25 03:46 Ur Specific Elmer 1.005 (1.005-1.030) 03/21/25 03:46 Urine Protein Negative (Negative) 03/21/25 03:46 Urine Glucose (UA) Negative (Normal) 03/21/25 03:46 Urine Ketones Negative (Negative) 03/21/25 03:46 Urine Blood Negative (Negative) 03/21/25 03:46 Urine Nitrate Negative (Negative) 03/21/25 03:46 Urine Bilirubin Negative (Negative) 03/21/25 03:46 Urine Urobilinogen 0.2 mg/dL (Negative) 03/21/25 03:46 Ur Leukocyte Esterase Negative (Negative) 03/21/25 03:46 Urine RBC 0-2 /hpf (0-2) 03/21/25 03:46 Urine WBC 0-5 /hpf (0-5) 03/21/25 03:46 Ur Squamous Epith Cells 0-5 /hpf (0-5) 03/21/25 03:46 Amorphous Sediment Not Reportable 03/21/25 03:46 Urine Bacteria None seen /hpf (NONE) 03/21/25 03:46 Hyaline Casts 0-4 /lpf H 03/21/25 03:46 No radiology studies performed this visit Discharge Plan Discharge Patient Disposition: Home Clinical Impression: Prolapse of bladder Condition: Stable Prescriptions: New hydrocodone-acetaminophen 5-325 mg tablet 1 tab PO Q8H PRN (Reason: pain) Qty: 7 0RF No Action dicyclomine 10 mg capsule 10 mg PO TID Qty: 20 0RF cholestyramine (with sugar) 4 gram powder 4 g PO BID Qty: 348.6 3RF Rx Instructions: administer w/meal; avoid other meds within 1hr before or 4-6hr after dose fluticasone propionate [Flonase Allergy Relief] 50 mcg/actuation spray,suspension 1 spray intranasal BID PRN (Reason: nasal congestion) Qty: 16 0RF Rx Instructions: administer into each nostril hydroxyzine HCl 25 mg tablet 25 mg PO QID PRN (Reason: anxiety) Qty: 30 2RF cetirizine [Zyrtec] 10 mg tablet 10 mg PO DAILY Qty: 30 0RF benzonatate 100 mg capsule 100 mg PO TID PRN (Reason: cough) Qty: 30 0RF ondansetron 4 mg tablet,disintegrating 4 mg PO Q8H PRN (Reason: nausea and vomiting) Qty: 10 0RF omeprazole 40 mg capsule,delayed release(DR/EC) 40 mg PO DAILY Qty: 30 9RF ibuprofen 800 mg tablet See Rx Instructions .ROUTE .COMPLEX Qty: 60 2RF Dose Instruction: TAKE 1 TABLET BY MOUTH EVERY 8 HOURS NEEDED FOR PAIN Rx Instructions: TAKE 1 TABLET BY MOUTH EVERY 8 HOURS NEEDED FOR PAIN acetaminophen 500 mg Tablet 1,000 mg PO QID PRN (Reason: Pain) Discharge Orders: Discharge ED (Routine); Ordered 03/21/25 Ordered By: Luisito Payton Referrals: King Almanzar MD [Physician, [facility]] - 1-3 days Dg Perla MD [Primary Care Provider, Family Practice] - 4-7 days Patient Instructions: Opioid Safety, Pain Management Activity Restrictions/Additional Instructions: Use pain medication for significant pain. Call the women's health clinic at the number above Saturday morning for follow-up appointment. Nonsurgical options may be available. Return for worsening pain, fever, significant discharge, other concerning symptoms in the meantime. Print Language: Hebrew Coding Level of Care Code ED [employer] Associate for Anmol Estevez
[2025-03-21 04:41] VITALS: BP 118/76; PULSE 68; RESP 16; O2SAT 98
[2025-03-21] MEDS: oxyCODONE-APAP 5-325 mg Tablet 2 TAB PO (05:44)
[2025-03-21 05:45] VITALS: BP 125/89; PULSE 78; RESP 16; O2SAT 100
== END 2025-03-21 05:53 | disposition home or self-care (01) ==
PROVIDERS: Emergency Provider Emergency Medicine; PCP Family Medicine
DX: N81.10 Cystocele, unspecified (principal); F17.290 Nicotine dependence, other tobacco product, uncomplicated
CPT/HCPCS: 81001; 99283; E0352; J9999

== ENCOUNTER → 2025-06-01 10:26 | Outpatient (BNVA) | payer OTHER, SELFPAY | PROVIDERS: PCP Family Medicine; Visit Provider Family Medicine | DX: M25.50 Pain in unspecified joint (principal) | CPT/HCPCS: 85651; 86038; 86140; 86431 ==

== ENCOUNTER 2025-08-20 12:41 | Outpatient (CLI) | payer OTHER, SELFPAY ==
--- NOTE | 2025-08-20 13:03 | XR_ITS ---
WS: [id number] XR sacroiliac jts m 3V [id number] REASON FOR EXAM: M25.50 - Pain in unspecified joint FINDINGS: Sacroiliac joints are well-defined with thin sclerotic margins. No erosions, bridging, or fusion. XR/XR sacroiliac jts m 3V [id number] IMPRESSION: No significant abnormality.
--- NOTE | 2025-08-20 13:03 | XR_ITS ---
WS: [id number] XR lumbar spine 2-3V* [id number] REASON FOR EXAM: M25.50 - Pain in unspecified joint FINDINGS: Mild rotatory levoscoliosis. Relatively normal lumbar lordosis. No significant vertebral body compression deformity or focal bone lesion. Intervertebral disc spaces are intact and well preserved with minimal narrowing of the L5-S1 disc space. No spondylolysis and no significant spondylolisthesis. XR/XR lumbar spine 2-3V* [id number] IMPRESSION: Minimal degenerative spondylosis at L5-S1.
[2025-08-20 13:44] LABS: Hematocrit 38.8 % (36-47); Hemoglobin 11.70 g/dL (11.27-16.99); Mean Corpuscular HGB Conc 30.2 g/dL (30-55); Mean Corpuscular Hemoglobin 19.1 pg (27-33); Mean Corpuscular Volume 63.2 fl (85-98); Nucleated Red Blood Cells % 0 %; Platelet Count 285 10^3/cmm (157-399); Red Blood Count 6.14 10^6/uL (3.85-5.65); White Blood Count 6.58 10^3/uL (3.29-11.43)
[2025-08-20 14:18] LABS: Alanine Aminotransferase 22 U/L (0-33); Albumin Level 4.4 g/dL (3.5-5.2); Alkaline Phosphatase 42 U/L (35-105); Aspartate Amino Transferase 19 U/L (0-32); Globulin 2.9 g/dL (1.3-4.6); Total Protein 7.3 g/dL (6.6-8.7)
[2025-08-20 14:27] LABS: Hepatitis B Surface Antigen Non-Reactive (Nonreactive)
[2025-08-22 05:18] LABS: COMPLEMENT COMPONENT C3C 173 mg/dL (83-193); COMPLEMENT COMPONENT C4C 31 mg/dL (15-57)
[2025-08-23 14:49] LABS: COMPLEMENT, TOTAL (CH50) 56 U/mL (31-60)
[2025-08-23 15:13] LABS: CENTROMERE B ANTIBODY <1.0 NEG AI (<1.0 NEG); JO-1 ANTIBODY <1.0 NEG AI (<1.0 NEG); RNP ANTIBODY <1.0 NEG AI (<1.0 NEG); SCL-70 ANTIBODY <1.0 NEG AI (<1.0 NEG); SS-B <1.0 NEG AI (<1.0 NEG)
[2025-08-24 12:45] LABS: THYROID PEROXIDASE ANTIBODIES <1 IU/mL (<9)
[2025-08-24 12:55] LABS: Mutated Citrullinated Vimentin <20 U/mL (<20)
[2025-08-26 06:55] LABS: DNA AB (DS) CRITHIDIA,IFA NEGATIVE (NEGATIVE)
== END 2025-08-20 12:42 | disposition home or self-care (01) ==
PROVIDERS: PCP Family Medicine; Visit Provider Internal Medicine Rheumatology
DX: M47.817 Spondylosis without myelopathy or radiculopathy, lumbosacral region (principal); M25.50 Pain in unspecified joint
CPT/HCPCS: 36415; 72100; 72202; 80076; 82306; 82565; 83520; 85025; 85651; 86140; 86160; 86162; 86200; 86235; 86255; 86376; 86431; 86480; 86704; 86803; 87340